=== PATIENT | female | born 1950 | race Caucasian/White ===

== ENCOUNTER 2016-09-21 16:51 | Observation (INO) | payer MEDICARE, OTHER ==
[2016-09-21] MEDS ORDERED: TYLENOL 325 MG PO PRN (18:59)
[2016-09-21] MEDS ORDERED: Zofran 4 MG/2 ML VIAL IV PRN (18:59)
[2016-09-21] MEDS ORDERED: Colace 100 MG PO PRN (18:59)
[2016-09-21] MEDS ORDERED: Sodium Chloride 0.9% 1000 ML 1,000 ML IV STA (18:59)
[2016-09-21] MEDS ORDERED: ROCEPHIN 1 Gm-D5w 50 ml Bag** 1 G/50 ML IVPB IV SCH (19:00)
[2016-09-21 19:50] LABS: BASOPHIL % 0.5 % (0.0-0.4); Eosinophil % 2.7 % (0.00-5.0); Granulocytes % 48.8 % (36.0-66.0); Lymphocytes % 36.3 % (24.0-44.0); Mean Cell Volume 89.5 fl (78-100); Mean Platelet Volume 10.1 fl (6-9.5); Monocytes % 11.7 % (0.0-12.0); Platelet Count 398 K/mm3 (150-450); Red Blood Count 4.37 M/mm3 (4.1-5.4); White Blood Count 6.3 K/mm3 (4.0-10.5)
[2016-09-21 20:53] LABS: ALBUMIN 3.8 g/dL (3.4-5.0); ALKALINE PHOSPHATASE 47 U/L (46-116); ANION GAP 12.7 MEQ/L (5-15); BILIRUBIN,TOTAL 0.2 mg/dL (0.2-1.0); BLOOD UREA NITROGEN 13 mg/dL (9-20); CHLORIDE 103 mEq/L (98-107); Carbon Dioxide 26.6 mEq/L (21-32); Glucose 92 MG/DL (70-110); Potassium 3.5 mEq/L (3.5-5.1); SGOT/AST 8 U/L (15-37); SGPT/ALT 16 U/L (12-78); SODIUM 139 mEq/L (136-145); Total Protein 7.4 gm/dL (6.4-8.2)
[2016-09-21 21:07] LABS: COMPLETE URINE MICROSCOPIC? YES; Collection Type CLEAN CATCH; Mucus SLIGHT /HPF (NEGATIVE); WBC 15-25 /HPF (0-5)
[2016-09-21 21:08] LABS: Bacteria FEW /HPF (NEGATIVE); Epithelial Cells MODERATE /HPF (FEW)
[2016-09-21] MEDS ORDERED: NORCO 5/325 MG PO PRN (21:14)
[2016-09-21] MEDS ORDERED: Protonix 20MG Tablet PO SCH (21:15)
[2016-09-21] MEDS ORDERED: BACTRIM DS TABLET PO PRN (21:16)
[2016-09-21] MEDS: Sodium Chloride 0.9% 1000 ML 1,000 ML IV SCH (21:48)
[2016-09-22] MEDS: Sodium Chloride 0.9% 1000 ML 1,000 ML IV SCH (07:51)
[2016-09-22] MEDS ORDERED: CAFFEINE PO PRN (08:09)
[2016-09-22] MEDS ORDERED: ASPIRIN PO PRN (08:09)
[2016-09-22] MEDS ORDERED: NORCO 5/325 MG PO PRN (08:09)
[2016-09-22] MEDS ORDERED: ACETAMINOPHEN PO PRN (08:09)
[2016-09-22 08:13] VITALS: BP 140/66
[2016-09-22] MEDS ORDERED: TYLENOL EXTRA STRENGTH 500 MG PO PRN (08:16)
[2016-09-22] MEDS ORDERED: Advair Hfa 115/21 Common canister IH SCH (08:30)
[2016-09-22] MEDS ORDERED: MEDICATION INTERVENTION MC PRN (08:33)
[2016-09-22 08:53] VITALS: PULSE 72; O2SAT 97
--- NOTE | 2016-09-22 09:08 | XRAY ---
Indication: Fever. Comparison: June 13, 2008. PA/lateral chest again hyperinflated with hilar calcified nodes. No focal infiltrate, consolidation, or large effusion. Heart is not enlarged. Bony thorax again demonstrate mild osteopenia with new remote-appearing fracture of what appears to be T7. Also interval L1/L3 kyphoplasty. Impression: Nonacute chest with chronic features. Comment: Preliminary interpretation was made by [facility]. No discrepancy.
[2016-09-22] MEDS ORDERED: NON-FORMULARY ITEM (Oxybutynin Chloride [Oxybutynin Chloride Er] 10 MG) PO SCH (10:00)
[2016-09-22] MEDS ORDERED: Ditropan XL 5 MG PO SCH (10:00)
[2016-09-22] MEDS ORDERED: Spiriva 18 Mcg/Cap Inhaler IH SCH (10:00)
[2016-09-22] MEDS ORDERED: NON-FORMULARY ITEM (Calcium [Calcium] 500 MG) PO SCH (10:00)
[2016-09-22] MEDS ORDERED: MV MIN PO SCH (10:00)
[2016-09-22] MEDS ORDERED: Calcium 500MG W/Vit D Tablet PO SCH (10:00)
[2016-09-22] MEDS ORDERED: Cozaar 50 MG PO SCH (10:00)
[2016-09-22] MEDS ORDERED: THERAGRAN MULTIVITAMIN PO SCH (10:00)
[2016-09-22] MEDS ORDERED: ENOXAPARIN SODIUM SQ SCH (10:00)
[2016-09-22] MEDS ORDERED: Singulair 10 MG PO SCH (10:00)
[2016-09-22] MEDS ORDERED: FISH OIL 1,000 MG CAPSULE PO SCH (10:00)
[2016-09-22] MEDS ORDERED: AZELASTINE HCL OP SCH (10:00)
[2016-09-22] MEDS ORDERED: Tricor 145 MG PO SCH (10:00)
[2016-09-22] MEDS ORDERED: NON-FORMULARY ITEM (Omega-3 Fatty Acids [Fish Oil] 300 MG) PO SCH (10:00)
[2016-09-22] MEDS ORDERED: [UNRECOGNIZED DRUG - OTHER] PO SCH (10:00)
[2016-09-22] MEDS ORDERED: NON-FORMULARY ITEM (Losartan Potassium [Losartan Potassium] 25 MG) PO SCH (10:00)
[2016-09-22] MEDS ORDERED: Lexapro 10 MG PO SCH (10:00)
[2016-09-22] MEDS ORDERED: VITAMIN D PO SCH (10:00)
[2016-09-22] MEDS ORDERED: NON-FORMULARY ITEM (Budesonide/Formoterol Fumarate [Symbicort 80-4.5 Mcg Inhaler] 2 PUFFS) IH SCH (10:00)
[2016-09-22] MEDS ORDERED: IRON CARBONYL PO SCH (10:00)
== END 2016-09-22 10:10 | disposition home or self-care (01) ==
LOC: MED SURG 16:51
PROVIDERS: ADMIT General Practice; ATTEND General Practice
DX: R10.84 Generalized abdominal pain (principal); N39.0 Urinary tract infection, site not specified; I10 Essential (primary) hypertension; E78.5 Hyperlipidemia, unspecified; M54.9 Dorsalgia, unspecified; G89.29 Other chronic pain; F45.42 Pain disorder with related psychological factors; F41.9 Anxiety disorder, unspecified; Z79.899 Other long term (current) drug therapy
CPT/HCPCS: 36415; 71020; 80053; 81000; 85025; 87040; 87086; 94640; 94760; G0378; J0696; J1650; A9270-GY

== ENCOUNTER 2016-11-19 15:20 | Emergency (ER) | payer MEDICARE, OTHER ==
[2016-11-19] MEDS ORDERED: Sodium Chloride 0.9% 1000 ML 1,000 ML IV STA (16:17)
[2016-11-19] MEDS ORDERED: Sodium Chloride 0.9% 1000 ML 1,000 ML ONE (16:20)
[2016-11-19] MEDS ORDERED: MORPHINE SULFATE 4 MG INJ IV ONE (16:34)
[2016-11-19] MEDS ORDERED: Phenergan 25 MG INJ IV ONE (16:34)
[2016-11-19 16:36] LABS: BASOPHIL % 0.4 % (0.0-0.4); Eosinophil % 1.3 % (0.00-5.0); Granulocytes % 65.2 % (36.0-66.0); Lymphocytes % 22.8 % (24.0-44.0); Mean Cell Volume 87.9 fl (78-100); Mean Corpuscular Hemoglobin 30.2 pg (26-32); Mean Platelet Volume 9.8 fl (6-9.5); Monocytes % 10.3 % (0.0-12.0); Platelet Count 462 K/mm3 (150-450); Red Blood Count 4.94 M/mm3 (4.1-5.4); Red Cell Distribution Width 14.1 % (11.5-14.0); White Blood Count 10.5 K/mm3 (4.0-10.5)
[2016-11-19 16:37] LABS: Collection Type VOID
[2016-11-19 16:38] LABS: Bilirubin NEGATIVE (NEGATIVE); Blood MODERATE Ery/ul (0-5); COMPLETE URINE MICROSCOPIC? YES; Glucose NEGATIVE (NEGATIVE); Leukocyte Esterase LARGE (NEGATIVE)
--- NOTE | 2016-11-19 16:42 | ERPHSYRPT ---
- History of Present Illness Time Seen by Provider: 11/19/16 16:23 Historian: patient Exam Limitations: no limitations Patient Subjective Stated Complaint: pt c/o abd pain in the center and nausea since tuesday. Triage Nursing Assessment: pt is alert x 3. ambulated into the ER. Respirations even and unlabored. skin is pink warm and dry. Physician History: This is a 66-year-old white female with history of asthma diverticulosis hernia repair partial gastrectomy polyps arthritis sarcoidosis osteoporosis cholecystectomy Patient states that she has chronic problems with ventral hernias she states she is scheduled for surgery in 2 months she states that she has been vomiting for approximately 2 weeks but since last Tuesday 3 days ago she began to have persistent vomiting she is having some periumbilical pain. She has no fevers no melena no hematochezia. Past medical history includes asthma, diverticulitis, hernia, polyps, arthritis , sarcoidosis, osteoporosis, past surgical history includes bowel surgery, cholecystectomy, hysterectomy, hernia repair, esophageal dilatation, and kidney stones Timing/Duration: week(s) (symptoms for 2 weeks worse for the past 3 days) Activities at Onset: none Quality: cramping Abdominal Pain Onset Location: periumbilical Pain Radiation: no radiation Severity of Pain-Max: moderate Severity of Pain-Current: moderate Associated Symptoms: nausea, vomiting, No back, No chest pain, No diaphoresis, No diarrhea, No fever/chills, No fatigue, No headache, No heartburn, No loss of appetite, No neck pain, No rash, No shortness of breath, No syncope, No weakness Previous symptoms: same symptoms as today Allergies/Adverse Reactions: No Known Drug Allergies Allergy (Unverified 09/21/16 17:00) Home Medications: Budesonide/Formoterol Fumarate [Symbicort 80-4.5 Mcg Inhaler] 2 puffs IH DAILY 09/21/16 [History] Cholecalciferol (Vitamin D3) [Vitamin D] 1,000 units PO BID 09/21/16 [ History] Escitalopram Oxalate 10 mg [Lexapro 10 MG] 20 mg PO DAILY 09/21/16 [History] Fenofibrate Nanocrystallized [Fenofibrate] 145 mg PO DAILY 09/21/16 [History] Hydrocodone Bit/Acetaminophen [[place] 5-325 Tablet] 1 each PO TID 09/21/16 [ History] Losartan Potassium 25 mg PO DAILY 09/21/16 [History] Montelukast Sodium [Singulair] 10 mg PO DAILY 09/21/16 [History] Mv, Min #36/Iron,Carbonyl/FA [Geritol Complete Tablet] 1 each PO DAILY 09/21/16 [History] Oxybutynin Chloride [Oxybutynin Chloride ER] 10 mg PO DAILY 09/21/16 [History] PANTOPRAZOLE 40 mg Tablet [Protonix 40MG Tablet] 40 mg PO TID PRN [History] Tiotropium [place] [Spiriva] 18 mcg IH DAILY 09/21/16 [History] [place]-3 Fatty Acids/Fish Oil [Fish Oil 1,000 mg Capsule] 1,000 mg PO DAILY 10/01/16 [History] Polyethylene Glycol 3350 17 gm [Miralax Powder 17GM PACKET] 17 gm PO DAILY [History] Hx Tetanus, Diphtheria Vaccination/Date Given: Yes (2015) Hx Influenza Vaccination/Date Given: Yes Hx Pneumococcal Vaccination/Date Given: Yes Immunizations Up to Date: Yes - Review of Systems Constitutional: No Fever, No Chills Eyes: No Symptoms Ears, Nose, & Throat: No Symptoms Respiratory: No Cough, No Dyspnea Cardiac: No Chest Pain, No Edema, No Syncope Abdominal/Gastrointestinal: Abdominal Pain, Nausea, Vomiting, No Diarrhea, No Constipation, No Hematemesis, No Hematochezia, No Melena, No Dysphagia, No Appetite Changes Genitourinary Symptoms: No Dysuria Musculoskeletal: No Back Pain, No Neck Pain Skin: No Rash Neurological: No Dizziness, No Focal Weakness, No Sensory Changes Psychological: No Symptoms Endocrine: No Symptoms All Other Systems: Reviewed and Negative - Past Medical History Pertinent Past Medical History: Yes Neurological History: No Pertinent History ENT History: No Pertinent History Cardiac History: No Pertinent History Respiratory History: Asthma Endocrine Medical History: No Pertinent History Musculoskeletal History: Arthritis, Other GI Medical History: Diverticulitis, Hernia, Polyps History: No Pertinent History Psycho-Social History: No Pertinent History Female Reproductive Disorders: No Pertinent History Other Medical History: sarcoidosis, osteoporosis, - Past Surgical History Past Surgical History: Yes Neuro Surgical History: No Pertinent History Gastrointestinal: Bowel Surgery, Cholecystectomy, Hernia Repair Female Surgical History: Hysterectomy, Tubal Ligation Other Surgical History: esophageal reduction, kyphoplasty - Social History Smoking Status: Never smoker Exposure to second hand smoke: Yes Drug Use: none Patient Lives Alone: Yes - Nursing Vital Signs Nursing Vital Signs: Initial Vital Signs Temperature 97.8 F Temperature Source Oral Pulse Rate 70 Respiratory Rate 20 Blood Pressure [] 143/75 Pain Intensity 0 - Physical Exam General Appearance: no apparent distress, alert Eye Exam: PERRL/EOMI, eyes nml inspection Ears, Nose, Throat Exam: normal ENT inspection, pharynx normal, moist mucous membranes Neck Exam: normal inspection, non-tender, supple, full range of motion Respiratory Exam: normal breath sounds, lungs clear, No respiratory distress Cardiovascular Exam: regular rate/rhythm, normal heart sounds Gastrointestinal/Abdomen Exam: soft, normal bowel sounds, tenderness ( Periumbilical tenderness), other (ventral hernias noted no entrapment noted) Back Exam: normal inspection, normal range of motion, No CVA tenderness, No vertebral tenderness Extremity Exam: normal inspection, normal range of motion, pelvis stable Neurologic Exam: alert, oriented x 3, cooperative, normal mood/affect, nml cerebellar function, sensation nml, No motor deficits Skin Exam: normal color, warm, dry SpO2 Interpretation: normal (97%) SpO2: 97 Oxygen Delivery: Room Air - Course Nursing assessment & vital signs reviewed: Yes EKG Interpreted by Me: RATE (67 bpm), Sinus Rhythm, NORMAL AXIS, Other (EKG: Sinus rhythm 67 bpm, normal axis, no acute ST or T wave changes noted) - Radiology Exams Abdomen X-ray Interpretation: Discussed w/ radiologist (three-view abdomen: Impression 1 abnormal bowel gas pattern which co distal small bowel obstruction further evaluation with a CT of abdomen and pelvis preferably with IV contrast may 2. No free intraperitoneal air is seen . No acute cardiopulmonary process is seen. 4. Status post kyphoplasty at L1 and L3 and slight thoracolumbar S- shaped scoliosis) - CT Exams Abdomen/Pelvis CT Interpretation: Discussed w/radiologist (CT abdomen and pelvis compared to June 13, 2008 small hiatal hernia possibly sliding type, ventral hernia with new knuckle of herniating producing partial obstruction. The second ventral umbilical hernia with small bowel herniating also producing partial obstruction. New nonobstructing left renal micro-ca, bladder micro-calculi and 1.6 cm left renal cyst) Ordered Tests: Active Orders 24 hr Category Date Time Status EKG-ER Only STAT Care 11/19/16 19:02 Active IV Insertion STAT Care 11/19/16 16:17 Active ABDOMEN AND PELVIS W CONTRAST [CT] Stat Exams 11/19/16 17:51 Taken OBSTR/ACUTE ABDOMEN SERIES Stat Exams 11/19/16 16:35 Completed AMYLASE Stat Lab 11/19/16 16:30 Completed CBC W DIFF Stat Lab 11/19/16 16:30 Completed CMP Stat Lab 11/19/16 16:30 Completed CULTURE,URINE Stat Lab 11/19/16 16:25 Received LIPASE Stat Lab 11/19/16 16:30 Completed UA W/ MICROSCOPIC Stat Lab 11/19/16 16:25 Completed Medication Summary Generic Name Dose Route Start Last Admin Trade Name Freq PRN Reason Stop Dose Admin Potassium Chloride 100 mls @ 50 mls/hr 11/19/16 19:20 11/19/16 19:36 Potassium Chloride 20 Meq In Water 100ml IV 11/19/16 21:19 50 mls/hr STAT ONE Administration Potassium Chloride/Sodium Chloride 1,000 mls @ 100 mls/hr 11/19/16 19:30 19:41 Sodium Chloride 0.9% W/ 20 Meq Kcl/Liter IV 12/19/16 19:29 100 mls/hr .Q10H MICHAEL Administration Discontinued Medications Generic Name Dose Route Start Last Admin Trade Name Freq PRN Reason Stop Dose Admin Sodium Chloride 1,000 mls @ 999 mls/hr 11/19/16 16:17 11/19/16 16:32 Sodium Chloride 0.9% 1000 Ml IV 11/19/16 17:17 999 mls/hr .Q1H1M STA Administration Sodium Chloride Confirm 11/19/16 16:20 Sodium Chloride 0.9% 1000 Ml Administered 11/19/16 16:21 Dose 1,000 mls @ ud .ROUTE .STK-MED ONE Ceftriaxone Sodium/Dextrose 1 g in 50 mls @ 100 mls/hr 11/19/16 17:51 17:52 Rocephin 1 Gm-D5w 50 Ml Bag IV 11/19/16 18:20 100 mls/hr STAT STA Administration Ceftriaxone Sodium/Dextrose Confirm 11/19/16 17:51 Rocephin 1 Gm-D5w 50 Ml Bag Administered 11/19/16 17:52 Dose 1 g in 50 mls @ ud IV .STK-MED ONE Potassium Chloride Confirm 11/19/16 19:35 Potassium Chloride 20 Meq In Water 100ml Administered 11/19/16 19:36 Dose 100 mls @ ud IV .STK-MED ONE Morphine Sulfate 4 mg 11/19/16 16:34 11/19/16 17:33 Morphine Sulfate 4 Mg Inj IV 11/19/16 16:35 4 mg STAT ONE Administration Morphine Sulfate Confirm 11/19/16 17:30 Morphine Sulfate 4 Mg Inj Administered 11/19/16 17:31 Dose 4 mg .ROUTE .STK-MED ONE Promethazine HCl 12.5 mg 11/19/16 16:34 11/19/16 17:33 Phenergan 25 Mg Inj IV 11/19/16 16:35 12.5 mg STAT ONE Administration Promethazine HCl Confirm 11/19/16 17:30 Phenergan 25 Mg Inj Administered 11/19/16 17:31 Dose 25 mg .ROUTE .STK-MED ONE Lab/Rad Data: Laboratory Result Diagrams 11/19/16 16:30 11/19/16 16:30 Laboratory Results 11/19/16 11/19/16 11/19/16 Range/Units 16:30 16:30 16:25 WBC 10.5 (4.0-10.5) K/mm3 RBC 4.94 (4.1-5.4) M/mm3 Hgb 14.9 (12.0-16.0) gm/dl Hct 43.4 (35-47) % MCV 87.9 (78-100) fl MCH 30.2 (26-32) pg MCHC 34.3 (32-36) g/dl RDW 14.1 H (11.5-14.0) % Plt Count 462 H (150-450) K/mm3 MPV 9.8 H (6-9.5) fl Gran % 65.2 (36.0-66.0) % Lymphocytes % 22.8 L (24.0-44.0) % Monocytes % 10.3 (0.0-12.0) % Eosinophils % 1.3 (0.00-5.0) % Basophils % 0.4 (0.0-0.4) % Basophils # 0.04 (0-0.4) Sodium 139 (136-145) mEq/L Potassium 2.9 L* (3.5-5.1) mEq/L Chloride 99 (98-107) mEq/L Carbon Dioxide 27.3 (21-32) mEq/L Anion Gap 15.5 H (5-15) MEQ/L BUN 22 H (9-20) mg/dL Creatinine 0.81 (0.55-1.30) mg/dl Estimated GFR > 60 ML/MIN Glucose 104 (70-110) MG/DL Calcium 10.2 H (8.5-10.1) mg/dL Total Bilirubin 0.50 (0.2-1.0) mg/dL AST 27 (15-37) U/L ALT 25 (12-78) U/L Alkaline Phosphatase 57 (46-116) U/L Serum Total Protein 8.1 (6.4-8.2) gm/dL Albumin 3.9 (3.4-5.0) g/dL Amylase 34 (25-115) U/L Lipase 117 (73-393) U/L Ur Collection Type VOID Urine Color YELLOW (YELLOW) Urine Appearance CLOUDY (CLEAR) Urine pH 7.0 (5-6) Ur Specific [place] 1.015 (1.005-1.025) Urine Protein TRACE (Negative) Urine Ketones NEGATIVE (NEGATIVE) Urine Blood MODERATE (0-5) Baudilio/ul Urine Nitrite NEGATIVE (NEGATIVE) Urine Bilirubin NEGATIVE (NEGATIVE) Urine Urobilinogen NORMAL (0-1) mg/dL Ur Leukocyte Esterase LARGE (NEGATIVE) Urine Microscopic RBC 2-5 (0-2) /HPF Urine Microscopic WBC >100 (0-5) /HPF Ur Epithelial Cells MODERATE (FEW) /HPF Calcium Oxalate Crystal 25-50 (NEGATIVE) /HPF Amorphous Crystals MODERATE (NEGATIVE) /HPF Urine Bacteria MANY (NEGATIVE) /HPF Urine Mucus SLIGHT (NEGATIVE) /HPF Urine Glucose NEGATIVE (NEGATIVE) mg/dL Specimen Received 11/19/16 1625 - Progress Progress: improved Progress Note: 11/19/16 16:41 66-year-old white female history of bowel resection in the ventral hernias with repair who states she has had recurrent ventral hernias. She arrives with complaint of pain in the anterior abdomen vomiting symptoms for 2 weeks symptoms worse for the past 3 days. Patient does not appear to be in severe distress at this time however she is complaining of pain in the periumbilical region. I have palpated her abdomen there are positive bowel sounds she does have some hernias has some around the periumbilical region however there does not appear to be any entrapment. She is stating that she is having some abdominal pain she apparently is on [place] but states she does not take it for her abdominal pain that she's not sure she can. Will go ahead and obtain CBC CMP amylase lipase and UA. Will provide IV fluids. Will give patient morphine and Phenergan and obtain acute abdomen series. 11/19/16 17:52 Patient's x-ray read as a radiologist as having abnormal bowel he has patent which could be due to early complete or partial distal small bowel obstruction further CT of the abdomen and pelvis with contrast was recommended. Patient also with greater than 100 white cells per high-power field in her urine. Patient also with a potassium of 2.9. Will go ahead and give patient Rocephin 1 g IV urine cultures have been obtained Will order CT of the abdomen and pelvis. Will talk with Dr. Overton when patient's CT results are available. Anticipate replacement of patient's potassium 11/19/16 19:49 CT of the abdomen and pelvis is remarkable for a hiatal hernia also a super umbilical ventral hernia with a knuckle of small and large bowel herniating causing a partial obstruction which is new there is also umbilical hernia with small bowel herniation also producing partial obstruction I've discussed the patient's case with Dr. Murray who is senior application security consultant for Dr. Overton Had considered admitting the patient here for treatment of her urinary tract infection, administration of IV fluids and potassium however the patient will need a surgery consult as well. The patient has seen in the past and is currently seeing him and we will go ahead and call and consider transfer to [facility]. 11/19/16 20:13 I contacted [facility] one call and contacted Elisabet Palmer who is on-call for the hospitalist at [facility]. I discussed the the patient's case with Elisabet Palmer she has accepted the patient for transfer to [facility] she will discussed the case with Dr. Blevins as well. - Departure Time of Disposition: 20:15 Departure Disposition: Transfer ([facility] Elisabet Palmer for hospitalist service) Clinical Impression: Small bowel obstruction, Hypokalemia Vomiting Qualifiers: Vomiting type: unspecified Vomiting Intractability: non-intractable Nausea presence: with nausea Qualified Code(s): R11.2 - Nausea with vomiting, unspecified Abdominal pain Qualifiers: Abdominal location: periumbilical Qualified Code(s): R10.33 - Periumbilical pain UTI (urinary tract infection) Qualifiers: Urinary tract infection type: site unspecified Hematuria presence: without hematuria Qualified Code(s): N39.0 - Urinary tract infection, site not specified Condition: Fair Critical Care Time: No Referrals: JSOE OVERTON [Primary Care Provider] -
[2016-11-19 16:45] LABS: Bacteria MANY /HPF (NEGATIVE); CALCIUM OXALATE CRYSTALS 25-50 /HPF (NEGATIVE); Epithelial Cells MODERATE /HPF (FEW); Mucus SLIGHT /HPF (NEGATIVE); WBC >100 /HPF (0-5)
[2016-11-19 16:46] LABS: ADD URINE CULTURE? YES (NO)
[2016-11-19 17:05] LABS: ALBUMIN 3.9 g/dL (3.4-5.0); ALKALINE PHOSPHATASE 57 U/L (46-116); ANION GAP 15.5 MEQ/L (5-15); BLOOD UREA NITROGEN 22 mg/dL (9-20); CHLORIDE 99 mEq/L (98-107); Carbon Dioxide 27.3 mEq/L (21-32); Glucose 104 MG/DL (70-110); LIPASE 117 U/L (73-393); SGOT/AST 27 U/L (15-37); SGPT/ALT 25 U/L (12-78); SODIUM 139 mEq/L (136-145); Total Protein 8.1 gm/dL (6.4-8.2)
[2016-11-19 17:12] LABS: Potassium 2.9 mEq/L (3.5-5.1)
--- NOTE | 2016-11-19 17:24 | XRAY ---
Exam: Acute abdominal series from 11/19/2016. Comparison: Two-view chest from 09/21/[address] of the abdomen without IV contrast from 06/13/2008. Indication: Vomiting and abdominal pain. Findings: An upright PA chest film was obtained in addition to 2 supine images of the abdomen and one upright image of the abdomen. The transverse heart size appears within normal limits. Mild tortuosity of the descending thoracic aorta is seen. Subcarinal lymph node calcifications are seen just to the right of midline as well as the right infrahilar projection. Previously noted retrocardiac hiatal hernia is not as well seen on the frontal projection. I believe there is some epicardial fat versus minimal atelectasis near the right cardiophrenic angle. I don't believe this is significantly changed. The lungs are adequately inflated. No air space infiltrates, vascular congestion, pneumothorax, or pleural fluid is seen. Some contour abnormalities are seen within the anterior lateral left lower rib cage suggestive of old healed fractures. This is unchanged. Mild to moderately dilated small bowel is seen across the lower abdomen containing air-fluid levels. Some gas is seen distally within the right hemicolon and splenic flexure. No free intraperitoneal air is seen. No hepatosplenomegaly is seen. No suspicious abdominal calcifications are noted. There is evidence of prior kyphoplasty at L1 and L3. There is slight convexity of the spine toward the right centered at T 11T12 and toward the left centered at L3. Impression: 1. Abnormal bowel gas pattern which could be due to an early complete or partial distal small bowel obstruction. Further evaluation with a CT of the abdomen and pelvis (preferably with IV contrast) may be helpful. 2. No free intraperitoneal air is seen. 3. No acute cardiopulmonary process is seen. 4. Status post kyphoplasty at L1 and L3 and slight lower thoracolumbar S-shaped scoliosis.
[2016-11-19] MEDS ORDERED: MORPHINE SULFATE 4 MG INJ ONE (17:30)
[2016-11-19] MEDS ORDERED: Phenergan 25 MG INJ ONE (17:30)
[2016-11-19] MEDS ORDERED: ROCEPHIN 1 Gm-D5w 50 ml Bag** 1 G/50 ML IVPB IV ONE (17:51)
[2016-11-19] MEDS ORDERED: ROCEPHIN 1 Gm-D5w 50 ml Bag** 1 G/50 ML IVPB IV STA (17:51)
[2016-11-19 18:10] VITALS: O2SAT 97
[2016-11-19 18:55] VITALS: PULSE 70
[2016-11-19] MEDS ORDERED: POTASSIUM CHLORIDE 20 mEq IN WATER 100ML 100 ML IV ONE ×2 (19:20→19:35)
[2016-11-19] MEDS ORDERED: Sodium Chloride 0.9% W/ 20 mEq KCl/LITER 1,000 ML IV SCH (19:30)
[2016-11-19] MEDS ORDERED: Sodium Chloride 0.9% W/ 20 mEq KCl/LITER 1,000 ML IV ONE (19:41)
[2016-11-19 21:06] VITALS: BP 137/78
--- NOTE | 2016-11-19 21:43 | XRAY ---
Indication: Abdominal pain and vomiting. Multiple contiguous axial images obtained through the abdomen and pelvis using 80 cc Isovue 370 contrast only. Comparison: June 17, 2008. Lung bases again demonstrate scattered fibrosis/scarring and right lower lobe calcified granuloma. Sparks right infrahilar calcified nodes. Heart is not enlarged. Previous large hiatal hernia appears smaller possibly sliding type. Previous umbilical ventral hernia defect has slightly enlarged today at least 4 cm in diameter with now a loop of small bowel herniating and mildly fluid distended. The more proximal small bowel loops are mildly fluid distended while the more distal bowel loops are decompressed suggesting partial obstruction. There is also new larger midline epigastric ventral hernia defect at least 6 cm in diameter with knuckle of transverse colon and fluid-filled small bowel herniating. Proximal small bowel loops are mildly distended while the more distal bowel loops are decompressed favoring partial obstruction. New left mid abdomen and distal sigmoid anastomosis appears intact. No free fluid/air. New left lower renal calyx microcalculi, largest 4-5 mm. Urinary bladder also demonstrates new posterior microcalculi versus bladder wall calcifications. New 1.7 cm left mid renal cyst. There has been interval cholecystectomy with mild biliary prominence. New 1.2 cm right lobe hepatic cyst inferiorly. A few hepatic/splenic calcified granulomas. Again previous hysterectomy. Remaining liver, pancreas, spleen, adrenal glands, kidneys, and ureters appear unremarkable. Again minimal scattered aortoiliac calcifications. No AAA or pathologic retroperitoneal lymphadenopathy. Osseous structures intact with new remote-appearing L1-L3 and L5 compression fractures. There has been L1/L3 vertebroplasty. Impression: 1. Enlarging umbilical ventral hernia and a new second midline epigastric ventral hernia both with herniated bowel loops producing partial obstruction. 2. New left renal cyst and microcalculi. Urinary bladder also demonstrates new posterior microcalculi versus bladder wall calcifications. Direct cystoscopy may yield further information. 3. New hepatic cyst. 4. Smaller hiatal hernia possibly sliding type. 5. New remote-appearing multilevel lumbar compression fractures and L1/L3 vertebroplasty. 6. Again evidence for old granulomatous disease. CTDI 26.36
== END 2016-11-19 21:15 | disposition short-term general hospital (02) ==
LOC: ED 15:20
DX: R11.2 Nausea with vomiting, unspecified (principal); R10.33 Periumbilical pain; N39.0 Urinary tract infection, site not specified; K56.69 Other intestinal obstruction; E87.6 Hypokalemia; R10.9 Unspecified abdominal pain; Z79.899 Other long term (current) drug therapy
CPT/HCPCS: 36000; 36415; 74022; 74177; 80053; 81000; 82150; 83690; 85025; 87086; 93005; 93041; 96360; 96361; 96365; 96374; 96375; 99285; J0696; J2270; J2550; J3480

== ENCOUNTER 2017-09-13 17:11 | Emergency (ER) | payer MEDICARE, OTHER ==
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
[2017-09-13] MEDS ORDERED: TORAdol 30 mg Injection ONE (18:04)
[2017-09-13] MEDS: TORAdol 30 mg Injection IV ONE (18:05)
[2017-09-13] MEDS: TORAdol 30 mg Injection IM ONE (18:13)
[2017-09-13 20:19] LABS: Appearance CLOUDY (CLEAR); Bilirubin NEGATIVE (NEGATIVE); Blood 250 Ery/ul (0-5); Glucose NEGATIVE (NEGATIVE); Ketones NEGATIVE (NEGATIVE); Leukocyte Esterase 2+ (NEGATIVE); Nitrite NEGATIVE (NEGATIVE); Ph 6.5 (5-6); Protein,Urine Dip NEGATIVE (Negative); Urobilinogen NORMAL mg/dL (0-1)
[2017-09-13 20:21] LABS: Amourphous Crystal MODERATE /HPF (NEGATIVE); Bacteria FEW /HPF (NEGATIVE); Epithelial Cells FEW /HPF (FEW)
[2017-09-13 20:39] VITALS: BP 127/61; PULSE 68; O2SAT 99
--- NOTE | 2017-09-14 08:42 | XRAY ---
Indication: Abdominal/rib pain following fall. Comparison: None KUB nonacute and nonobstructed with cholecystectomy clips, left renal micro-calculi, calcified splenic granulomas, and right abdomen/pelvic suture material. Osseous structures intact with osteopenia, remote multilevel lumbar compression fractures, and L1/L3 kyphoplasty. Impression: Nonacute KUB with chronic features.
--- NOTE | 2017-09-14 08:44 | XRAY ---
Indication: Pain following fall. Comparison: None 2 views of the left ribs demonstrates osteopenia, multilevel degenerative spondylosis, multiple old left rib fractures, remote T7 compression fracture, L-1/L3 kyphoplasty, mediastinal/hilar calcified granulomas, calcified splenic granulomas, and left renal micro-calculi. No other bony, articular, or soft tissue abnormalities.
--- NOTE | 2017-09-14 08:47 | XRAY ---
Indication: Pain following fall. Comparison: None 2 views of the right ribs demonstrates osteopenia, multilevel degenerative spondylosis, remote T7 compression fracture, L1/L3 kyphoplasty, and mediastinal/hilar calcified granulomas. No other bony, articular, or soft tissue abnormalities.
== END 2017-09-13 20:40 | disposition home or self-care (01) ==
LOC: ED 17:11
DX: R10.9 Unspecified abdominal pain (principal); R07.9 Chest pain, unspecified; R51 Headache; R07.81 Pleurodynia; N39.0 Urinary tract infection, site not specified; W17.89XA Other fall from one level to another, initial encounter; Z79.899 Other long term (current) drug therapy
CPT/HCPCS: 36000; 71100; 74018; 81000; 87086; 96374; 99283; 99284; J1885

== ENCOUNTER 2019-07-11 01:40 | Emergency (ER) | payer MEDICARE, OTHER ==
[2019-07-11] MEDS ORDERED: SUBLIMAZE 100 MCG/2 ML IV ONE (01:50)
[2019-07-11] MEDS ORDERED: SUBLIMAZE 100 MCG/2 ML ONE (01:57)
--- NOTE | 2019-07-11 01:57 | ERPHSYRPT ---
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 There is redness but no vesicles or blisters. She complains of pain. This occurred just prior to arrival. And is presently treated with [place] fives twice a day we will give her a prescription for 10 additional tablets to handle the pain of these nichols. Timing/Duration: sudden Quality: burning Severity: severe Location: extremities (Both lower legs) Possible Causes: foods (Broth) Associated Symptoms: No blisters Allergies/Adverse Reactions: No Known Drug Allergies Allergy (Verified 08/22/18 11:31) Home Medications: Budesonide/Formoterol Fumarate [Symbicort 80-4.5 Mcg Inhaler] 2 puffs IH DAILY 09/21/16 [History] Cholecalciferol (Vitamin D3) [Vitamin D] 1,000 units PO BID 09/21/16 [ History] Escitalopram Oxalate 10 mg [Lexapro 10 MG] 20 mg PO DAILY 09/21/16 [History] Fenofibrate Nanocrystallized [Fenofibrate] 145 mg PO DAILY 09/21/16 [History] Hydrocodone Bit/Acetaminophen [[place] 5-325 Tablet] 1 each PO Q6-8HPRN PRN [History] Losartan Potassium 25 mg PO DAILY 09/21/16 [History] Montelukast Sodium [Singulair] 10 mg PO DAILY 09/21/16 [History] Multivit-Min36/Iron/Folic Acid [Geritol Complete Tablet] 1 each PO DAILY [History] PANTOPRAZOLE 40 mg Tablet [Protonix 40MG Tablet] 40 mg PO DAILY PRN PRN [History] Tiotropium [place] [Spiriva] 18 mcg IH DAILY 09/21/16 [History] Hx Tetanus, Diphtheria Vaccination/Date Given: Yes Hx Influenza Vaccination/Date Given: Yes Hx Pneumococcal Vaccination/Date Given: Yes - Review of Systems Constitutional: No Fever, No Chills Eyes: No Symptoms Ears, Nose, & Throat: No Symptoms Respiratory: No Cough, No Dyspnea Cardiac: No Chest Pain, No Edema, No Syncope Abdominal/Gastrointestinal: No Abdominal Pain, No Nausea, No Vomiting, No Diarrhea Genitourinary Symptoms: No Dysuria Musculoskeletal: No Back Pain, No Neck Pain Skin: Other (First degree or partial-thickness ncihols to anterior both legs.), No Rash Neurological: No Dizziness, No Focal Weakness, No Sensory Changes Psychological: No Symptoms Endocrine: No Symptoms All Other Systems: Reviewed and Negative - Past Medical History Pertinent Past Medical History: Yes Neurological History: No Pertinent History ENT History: No Pertinent History Cardiac History: No Pertinent History Respiratory History: Asthma Endocrine Medical History: No Pertinent History Musculoskeletal History: Arthritis, Osteoporosis, Other GI Medical History: Diverticulitis, Hernia, Polyps History: No Pertinent History Psycho-Social History: No Pertinent History Female Reproductive Disorders: No Pertinent History Other Medical History: sarcoidosis, osteoporosis, - Past Surgical History Past Surgical History: Yes Neuro Surgical History: No Pertinent History Cardiac: No Pertinent History Respiratory: No Pertinent History Gastrointestinal: Bowel Surgery, Cholecystectomy, Hernia Repair Female Surgical History: Hysterectomy, Tubal Ligation Other Surgical History: esophageal reduction, kyphoplasty - Social History Smoking Status: Never smoker Exposure to second hand smoke: Yes Drug Use: none Patient Lives Alone: No - Physical Exam General Appearance: no apparent distress, alert Eye Exam: PERRL/EOMI, eyes nml inspection Ears, Nose, Throat Exam: normal ENT inspection, pharynx normal, moist mucous membranes Neck Exam: normal inspection, non-tender, supple, full range of motion Respiratory Exam: normal breath sounds, lungs clear, No respiratory distress Cardiovascular Exam: regular rate/rhythm, normal heart sounds Gastrointestinal/Abdomen Exam: soft, mass, No tenderness Back Exam: normal inspection, normal range of motion, No CVA tenderness, No vertebral tenderness Extremity Exam: normal inspection, normal range of motion Neurologic Exam: alert, oriented x 3, cooperative, normal mood/affect, sensation nml, No motor deficits Skin Exam: other (There is first-degree or partial-thickness nichols to scattered areas on the front of both lower legs) SpO2 Interpretation: normal O2 Delivery: Room Air - Course Nursing assessment & vital signs reviewed: Yes Ordered Tests: Medication Summary Generic Name Dose Route Start Last Admin Trade Name Freq PRN Reason Stop Dose Admin Fentanyl Citrate 75 mcg 07/11/19 01:50 Sublimaze 100 Mcg/2 Ml IV 07/11/19 01:51 STAT ONE - Progress Progress: improved Progress Note: 07/11/19 02:05 Patient is on chronic [place] 5 twice daily we will give 10 extra tablets as needed for pain from the nichols. - Departure Departure Disposition: Home Clinical Impression: First degree burn of right leg, First degree burn of left leg Condition: Stable Critical Care Time: No Referrals: JOSE OVERTON [Primary Care Provider] - Instructions: Skin Nichols Prescriptions: Hydrocodone/APAP 5-325 Tab^^^ [[place] 5-325 Tablet^^^] 1 tab PO Q6HPRN PRN #10 tablet MDD 6 PRN Reason: Pain
[2019-07-11] MEDS ORDERED: BACIGUENT PACKET TP ONE (02:06)
[2019-07-11] MEDS ORDERED: BACIGUENT PACKET ONE (02:11)
[2019-07-11] MEDS ORDERED: TORAdol 30 mg Injection IM ONE (02:52)
[2019-07-11 02:53] VITALS: BP 130/96; PULSE 89
[2019-07-11] MEDS ORDERED: TORAdol 30 mg Injection ONE (02:53)
[2019-07-11] MEDS ORDERED: ZOFRAN ODT 4 MG ONE (02:55)
[2019-07-11] MEDS ORDERED: ZOFRAN ODT 4 MG PO ONE (02:56)
[2019-07-11 03:31] VITALS: O2SAT 98
== END 2019-07-11 03:20 | disposition home or self-care (01) ==
LOC: ED 01:40
DX: T24.102A Burn of first degree of unspecified site of left lower limb, except ankle and foot, initial encounter (principal); T24.101A Burn of first degree of unspecified site of right lower limb, except ankle and foot, initial encounter; X12.XXXA Contact with other hot fluids, initial encounter; Y93.G3 Activity, cooking and baking; Y92.29 Other specified public building as the place of occurrence of the external cause
CPT/HCPCS: 96372; 96374; 99284; J1885; J3010; Q0162; A9270-GY

== ENCOUNTER 2021-02-23 17:56 | Emergency (ER) | payer MEDICARE, OTHER ==
--- NOTE | 2021-02-23 20:27 | ERPHSYRPT ---
- History of Present Illness Time Seen by Provider: 02/23/21 18:20 Source: patient Exam Limitations: no limitations Patient Subjective Stated Complaint: Pt states "I have had horrible diarrhea since last night, my body hurts and I do not feel well" Triage Nursing Assessment: Pt presented alert and oriented X 3, skin wpd Pt ambulates with a slow shuffling gait. Pt in no apparent respiratory distress. Physician History: Patient is a 70-year-old female presents to our ED for evaluation of diarrhea x1 day. Patient states she is also experiencing myalgias. No other complaints. No chest pain or shortness of breath. No nausea or vomiting. Diarrhea is nonbloody nonbilious. No rash. Symptoms are mild to moderate in intensity. No specific worsening improving factors. Patient has no urinary complaints. Patient voices no other complaints or concerns at this time. Timing/Duration: yesterday Severity: moderate Modifying Factors: Improves With: nothing Associated Symptoms: denies symptoms, No abdominal pain, No shortness of breath, No rash Allergies/Adverse Reactions: No Known Drug Allergies Allergy (Verified 02/10/21 15:28) Home Medications: Budesonide/Formoterol Fumarate [Symbicort 80-4.5 Mcg Inhaler] 2 puffs IH DAILY 09/21/16 [History] Cholecalciferol (Vitamin D3) [Vitamin D] 1,000 units PO BID 09/21/16 [History] Escitalopram Oxalate 10 mg [Lexapro 10 MG] 20 mg PO DAILY 09/21/16 [History] Fenofibrate Nanocrystallized [Fenofibrate] 145 mg PO DAILY 09/21/16 [History] Losartan Potassium 25 mg PO DAILY 09/21/16 [History] Montelukast Sodium [Singulair] 10 mg PO DAILY 09/21/16 [History] Multivit-Min36/Iron/Folic Acid [Geritol Complete Tablet] 1 each PO DAILY 09/21/16 [History] PANTOPRAZOLE 40 mg Tablet [Protonix 40MG Tablet] 40 mg PO DAILY PRN PRN 09/21/16 [History] Tiotropium [place] [Spiriva] 18 mcg IH DAILY 09/21/16 [History] Calcium Phosphate Trib/Vit D3 [Calcium Adult Gummies] 1 each PO DAILY 09/14/21 [History] Hx Tetanus, Diphtheria Vaccination/Date Given: Yes Hx Influenza Vaccination/Date Given: Yes Hx Pneumococcal Vaccination/Date Given: Yes Immunizations Up to Date: Yes Travel Risk - International Travel Have you traveled outside of the country in past 3 weeks: No - Coronavirus Screening Are you exhibiting any of the following symptoms?: No Close contact with a COVID-19 positive Pt in past 14-21 Days: No - Vaccine Status Have you recieved a Covid-19 vaccination: Yes 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: [employer] - Vaccination Dates Date of 2cond Vaccination (if applicable): 09/08/2020 - Review of Systems Constitutional: No Symptoms, No Fever, No Chills Eyes: No Symptoms Ears, Nose, & Throat: No Symptoms Respiratory: No Symptoms, No Cough, No Dyspnea Cardiac: No Symptoms, No Chest Pain, No Edema, No Syncope Abdominal/Gastrointestinal: No Symptoms, No Abdominal Pain, No Nausea, No Vomiting, No Diarrhea Genitourinary Symptoms: No Symptoms, No Dysuria Musculoskeletal: No Symptoms, No Back Pain, No Neck Pain Skin: No Symptoms, No Rash Neurological: No Symptoms, No Dizziness, No Focal Weakness, No Sensory Changes Psychological: No Symptoms Endocrine: No Symptoms Hematologic/Lymphatic: No Symptoms Immunological/Allergic: No Symptoms All Other Systems: Reviewed and Negative - Past Medical History Pertinent Past Medical History: Yes Neurological History: No Pertinent History ENT History: No Pertinent History Cardiac History: High Cholesterol, Hypertension Respiratory History: Asthma Endocrine Medical History: No Pertinent History Musculoskeletal History: Arthritis, Osteoporosis, Other GI Medical History: Diverticulitis, Hernia, Polyps History: No Pertinent History Psycho-Social History: No Pertinent History Female Reproductive Disorders: No Pertinent History Other Medical History: sarcoidosis, osteoporosis, - Past Surgical History Past Surgical History: Yes Neuro Surgical History: No Pertinent History Cardiac: No Pertinent History Respiratory: No Pertinent History Gastrointestinal: Bowel Surgery, Cholecystectomy, Hernia Repair Genitourinary: No Pertinent History Musculoskeletal: Other Female Surgical History: Hysterectomy, Tubal Ligation Other Surgical History: esophageal reduction, kyphoplasty - Social History Smoking Status: Never smoker Exposure to second hand smoke: Yes Drug Use: none Patient Lives Alone: No - Nursing Vital Signs Nursing Vital Signs: Initial Vital Signs Temperature 98.2 F 02/23/21 18:18 Pulse Rate 104 H 02/23/21 18:18 Respiratory Rate 20 02/23/21 18:18 Blood Pressure 134/58 02/23/21 18:18 O2 Sat by Pulse Oximetry 95 02/23/21 18:18 Pain Scale Pain Intensity 0 - Physical Exam General Appearance: no apparent distress, alert Eye Exam: PERRL/EOMI, eyes nml inspection Ears, Nose, Throat Exam: normal ENT inspection, TMs normal, pharynx normal, moist mucous membranes Neck Exam: normal inspection, non-tender, supple, full range of motion Respiratory Exam: normal breath sounds, lungs clear, airway intact, No respiratory distress Cardiovascular Exam: regular rate/rhythm, normal heart sounds, normal peripheral pulses Gastrointestinal/Abdomen Exam: soft, normal bowel sounds, No tenderness, No mass Back Exam: normal inspection, normal range of motion, No CVA tenderness, No vertebral tenderness Extremity Exam: normal inspection, normal range of motion, pelvis stable Neurologic Exam: alert, oriented x 3, cooperative, normal mood/affect, sensation nml, No motor deficits Skin Exam: normal color, warm, dry, No rash Lymphatic Exam: No adenopathy SpO2 Interpretation: normal SpO2: 95 O2 Delivery: Room Air - Course Nursing assessment & vital signs reviewed: Yes Ordered Tests: Active Orders 24 hr Category Date Time Status CBC W DIFF Stat Lab 02/23/21 20:40 Completed CMP Stat Lab 02/23/21 20:40 Completed CULTURE,URINE Stat Lab 02/23/21 20:28 Ordered TROPONIN Q3H Lab 02/23/21 20:40 Received TROPONIN Q3H Lab 02/23/21 23:30 Ordered TROPONIN Q3H Lab 02/24/21 02:30 Ordered TROPONIN Q3H Lab 02/24/21 05:30 Ordered TROPONIN Q3H Lab 02/24/21 08:30 Ordered UA W/RFX UR CULTURE Stat Lab 02/23/21 20:27 Ordered Medication Summary Discontinued Medications Generic Name Dose Route Start Last Admin Trade Name Freq PRN Reason Stop Dose Admin Sodium Chloride 1,000 mls @ 999 mls/hr 02/23/21 20:33 02/23/21 20:39 Sodium Chloride 0.9% 1000 Ml IV 02/23/21 21:33 999 mls/hr .Q1H1M STA Administration Sodium Chloride Confirm 02/23/21 20:38 Sodium Chloride 0.9% 1000 Ml Administered 02/23/21 20:39 Dose 1,000 mls @ ud .ROUTE .STK-MED ONE Ketorolac Tromethamine 30 mg 02/23/21 21:32 Toradol 30 Mg Injection IV 02/23/21 21:33 STAT ONE Ketorolac Tromethamine Confirm 02/23/21 21:33 Toradol 30 Mg Injection Administered 02/23/21 21:34 Dose 30 mg .ROUTE .[facility]-MED ONE Lab/Rad Data: Laboratory Result Diagrams 02/23/21 20:40 02/23/21 20:40 Laboratory Results 02/23/21 02/23/21 02/23/21 Range/Units 20:40 20:40 20:40 WBC 11.0 H (4.0-10.5) K/mm3 RBC 4.98 (4.1-5.4) M/mm3 Hgb 14.5 (12.0-16.0) gm/dl Hct 45.9 (35-47) % MCV 92.2 (78-100) fl MCH 29.1 (26-32) pg MCHC 31.6 L (32-36) g/dl RDW 14.5 H (11.5-14.0) % Plt Count 409 (150-450) K/mm3 MPV 10.3 (7.5-11.0) fl Gran % 82.2 H (36.0-66.0) % Eos # (Auto) 0.01 (0-0.5) Absolute Lymphs (auto) 1.01 (1.0-4.6) Absolute Monos (auto) 0.92 (0.0-1.3) Lymphocytes % 9.2 L (24.0-44.0) % Monocytes % 8.4 (0.0-12.0) % Eosinophils % 0.1 (0.00-5.0) % Basophils % 0.1 (0.0-0.4) % Absolute Granulocytes 9.00 H (1.4-6.9) Basophils # 0.01 (0-0.4) Sodium 139 (137-145) mmol/L Potassium 3.6 (3.5-5.1) mmol/L Chloride 101 (98-107) mmol/L Carbon Dioxide 26 (22-30) mmol/L Anion Gap 16.2 H (5-15) MEQ/L BUN 20 H (7-17) mg/dL Creatinine 0.65 (0.52-1.04) mg/dL Estimated GFR > 60.0 ML/MIN Glucose 114 H (74-106) mg/dL Calcium 10.3 H (8.4-10.2) mg/dL Total Bilirubin 0.70 (0.2-1.3) mg/dL AST 36 (14-36) U/L ALT 19 (0-35) U/L Alkaline Phosphatase 63 (38-126) U/L Troponin I < 0.012 (0.000-0.034) ng/mL Serum Total Protein 8.7 H (6.3-8.2) g/dL Albumin 4.9 (3.5-5.0) g/dL - Progress Progress: improved Progress Note: Patient reassessed. She feels better. IV fluids infusing. Patient will rece candice Toradol IV prior to discharge. We will order an outpatient Covid test prior to discharge as well. Patient states he is ready for discharge. Laboratory work-up essentially nonremarkable. Patient voices no other complaints concerns at this time. She agrees to follow-up with her primary care doctor within 48 hours for reevaluation. Portions of this note were created with voice recognition technology. There may be grammatical, spelling, punctuation or sound alike errors 02/23/21 21:33 Counseled pt/family regarding: lab results, diagnosis, need for follow-up - Departure Departure Disposition: Home Clinical Impression: Diarrhea, Myalgia Condition: Stable Critical Care Time: No Referrals: JOSE OVERTON [Primary Care Provider] - Additional Instructions: Discharge/Care Plan DAPHNIE ZAMAN was seen on 02/23/21 in the Emergency Room. The patient was counseled regarding Diagnosis,Lab results, Imaging studies, need for follow up and when to return to the Emergency Room. Prescriptions given: Discharge Note I have spoken with the patient and/or caregivers. I have explained the patient's condition, diagnosis and treatment plan based on the information available to me at this time. I have answered the patient's and/or caregiver's questions and addressed any concerns. The patient and/or caregivers have as good understanding of the patient's diagnosis, condition and treatment plan as can be expected at this point. The vital signs have been stable. The patient's condition is stable and appropriate for discharge from the emergency department. The patient will pursue further outpatient evaluation with the primary care physician or other designated or consulting physician as outlined in the discharge instructions. The patient and/or caregivers are agreeable to this plan of care and follow-up instructions have been explained in detail. The patient and/or caregivers have received these instruction. The patient/and or caregivers are aware that any significant change in condition or worsening of symptoms should prompt an immediate return to this or the closest emergency department or call 911.
[2021-02-23] MEDS ORDERED: Sodium Chloride 0.9% 1000 ML 1,000 ML IV STA (20:33)
[2021-02-23] MEDS ORDERED: Sodium Chloride 0.9% 1000 ML 1,000 ML ONE (20:38)
[2021-02-23 21:04] LABS: BASOPHIL % 0.1 % (0.0-0.4); Basophil (Absolute #) 0.01 (0-0.4); Eosinophil % 0.1 % (0.00-5.0); Eosinophil (Absolute #) 0.01 (0-0.5); Hematocrit 45.9 % (35-47); Hemoglobin 14.5 gm/dl (12.0-16.0); Lymphocyte (Absolute #) 1.01 (1.0-4.6); Lymphocytes % 9.2 % (24.0-44.0); Mean Cell Volume 92.2 fl (78-100); Mean Corpuscular Hemoglobin 29.1 pg (26-32); Mean Corpuscular Hgb Concent. 31.6 g/dl (32-36); Mean Platelet Volume 10.3 fl (7.5-11.0); Monocyte (Absolute #) 0.92 (0.0-1.3); Monocytes % 8.4 % (0.0-12.0); Neutrophil % 82.2 % (36.0-66.0); Platelet Count 409 K/mm3 (150-450); Red Blood Count 4.98 M/mm3 (4.1-5.4); Red Cell Distribution Width 14.5 % (11.5-14.0)
[2021-02-23 21:15] LABS: ALBUMIN 4.9 g/dL (3.5-5.0); ALKALINE PHOSPHATASE 63 U/L (38-126); ANION GAP 16.2 MEQ/L (5-15); BLOOD UREA NITROGEN 20 mg/dL (7-17); CHLORIDE 101 mmol/L (98-107); Calcium 10.3 mg/dL (8.4-10.2); Carbon Dioxide 26 mmol/L (22-30); Creatinine 1 0.65 mg/dL (0.52-1.04); EST GLOMERULAR FILTRATION RATE > 60.0 ML/MIN; Glucose 114 mg/dL (74-106); Potassium 3.6 mmol/L (3.5-5.1); SGOT/AST 36 U/L (14-36); SGPT/ALT 19 U/L (0-35); SODIUM 139 mmol/L (137-145); Total Protein 8.7 g/dL (6.3-8.2)
[2021-02-23] MEDS ORDERED: TORAdol 30 mg Injection IV ONE (21:32)
[2021-02-23] MEDS ORDERED: TORAdol 30 mg Injection ONE (21:33)
[2021-02-23 22:37] LABS: Appearance CLOUDY (CLEAR); Bacteria FEW /HPF (NEGATIVE); Bilirubin NEGATIVE (NEGATIVE); Blood SMALL Ery/ul (0-5); Epithelial Cells RARE /HPF (FEW); Glucose NEGATIVE (NEGATIVE); Ketones TRACE (NEGATIVE); Leukocyte Esterase LARGE (NEGATIVE); Mucus SLIGHT /HPF (NEGATIVE); Nitrite NEGATIVE (NEGATIVE); Protein,Urine Dip 100 (Negative); RBC 26-50 /HPF (0-2); Specific Gravity 1.028 (1.005-1.025); Urobilinogen NEGATIVE mg/dL (0-1); WBC >100 /HPF (0-5)
[2021-02-23] MEDS ORDERED: Macrobid 100MG Capsule PO ONE (22:44)
[2021-02-23] MEDS ORDERED: Macrobid 100MG Capsule ONE (22:45)
[2021-02-23 22:52] VITALS: BP 138/71; PULSE 88; O2SAT 98
== END 2021-02-23 22:52 | disposition home or self-care (01) ==
LOC: ED 17:56
DX: R19.7 Diarrhea, unspecified (principal); M79.18 Myalgia, other site; N39.0 Urinary tract infection, site not specified; E78.00 Pure hypercholesterolemia, unspecified; I10 Essential (primary) hypertension; Z79.899 Other long term (current) drug therapy
CPT/HCPCS: 36415; 80053; 81001; 82550; 84484; 85025; 87086; 96360; 96374; 99284; U0003; J1885; A9270-GY

== ENCOUNTER 2022-05-18 08:37 | Day surgery (SDC) | payer MEDICARE, OTHER ==
[2022-05-18] MEDS ORDERED: Lactated Ringers 1,000 ML IV ONE (09:03)
[2022-05-18] MEDS ORDERED: Transderm Scop 1.5MG Patch TOP PRN (09:15)
[2022-05-18] MEDS ORDERED: Transderm Scop 1.5MG Patch ONE (09:28)
[2022-05-18] MEDS ORDERED: Zofran 4 MG/2 ML VIAL ONE (09:28)
[2022-05-18] MEDS ORDERED: ACETAZOLAMIDE 250 MG TABLET PO ONE (10:00)
[2022-05-18] MEDS ORDERED: Ak-Dilate OPHTHALMIC*** 1.065 ML, Cyclogyl 1% OPHTH SOL 1.065 ML, GATIFLOXACIN 0.5% OPH... OP ONE ×4 (10:00)
[2022-05-18] MEDS ORDERED: cefUROXime sodium 0.005 GM in Sodium Chloride Flush 30 ML*** 0.5 ML IJ ONE (10:00)
[2022-05-18] MEDS ORDERED: Lactated Ringers 1,000 ML IV SCH (10:00)
[2022-05-18] MEDS ORDERED: NON-FORMULARY ITEM OP ONE (10:00)
[2022-05-18] MEDS ORDERED: TETRACAINE 0.5% STERI-UNIT SOL OP ONE ×2 (10:00)
[2022-05-18] MEDS ORDERED: Zofran 4 MG/2 ML VIAL IV PRN (10:00)
[2022-05-18] MEDS ORDERED: BETADINE 5% OPHTHALMIC 30 ML OP ONE (10:00)
[2022-05-18] MEDS ORDERED: Xylocaine-Mpf 2% 5 Ml Vial ONE (10:17)
[2022-05-18] MEDS ORDERED: DIPRIVAN 200 MG/20 ML IV ONE (10:17)
[2022-05-18] MEDS ORDERED: Versed 2 MG/2 ML Injection ONE (10:17)
[2022-05-18] MEDS ORDERED: SUBLIMAZE 100 MCG/2 ML ONE (10:17)
[2022-05-18 10:54] VITALS: BP 127/77; PULSE 72; O2SAT 91
[2022-05-18] MEDS ORDERED: Epinephrine Preservative Free 1 MG/ML ONE (15:29)
== END 2022-05-18 11:00 | disposition home or self-care (01) ==
LOC: SDC 08:37
PROVIDERS: ATTEND Ophthalmology
DX: H25.811 Combined forms of age-related cataract, right eye (principal)
CPT/HCPCS: 99100; C1780; J0171; J2250; J2405; J2704; J3010; A9270-GY

== ENCOUNTER 2023-04-25 12:03 | Emergency (ER) | payer MEDICARE, OTHER ==
[2023-04-25 12:28] VITALS: TEMP 97.9
[2023-04-25 13:18] LABS: BASOPHIL % 0.4 % (0.0-0.4); Basophil (Absolute #) 0.04 x10^3/uL (0-0.4); Eosinophil % 0.6 % (0.00-5.0); Eosinophil (Absolute #) 0.07 x10^3/uL (0-0.5); Hematocrit 38.3 % (35-47); Hemoglobin 12.3 g/dL (12.0-16.0); IMMATURE GRAN # 0.04 x10^3u/L (0.00-0.03); IMMATURE GRAN % 0.4 % (0.00-0.4); Lymphocyte (Absolute #) 2.15 x10^3/uL (1.0-4.6); Lymphocytes % 19.2 % (24.0-44.0); Mean Cell Volume 92.7 fL (78-100); Mean Corpuscular Hemoglobin 29.8 pg (26-32); Mean Corpuscular Hgb Concent. 32.1 g/dL (32-36); Mean Platelet Volume 9.7 fL (7.5-11.0); Monocyte (Absolute #) 1.09 x10^3/uL (0.0-1.3); Monocytes % 9.7 % (0.0-12.0); Neutrophil % 69.7 % (36.0-66.0); Platelet Count 385 x10^3/uL (150-450); Red Blood Count 4.13 x10^6/uL (4.1-5.4); Red Cell Distribution Width 13.2 % (11.5-14.0); White Blood Count 11.2 x10^3/uL (4.0-10.5)
[2023-04-25 13:33] LABS: BILIRUBIN,TOTAL 0.6 mg/dL (0.2-1.3); Calcium 9.5 mg/dL (8.4-10.2); Creatinine 1 0.5 mg/dL (0.52-1.04); EST GLOMERULAR FILTRATION RATE 100.2 ML/MIN; Potassium 3.6 mmol/L (3.5-5.1); Total Protein 7.4 g/dL (6.3-8.2)
[2023-04-25 13:39] LABS: INR 1.04 (0.8-3.0); PROTIME 11.3 SECONDS (9.4-12.5); PTT 35.7 SECONDS (25.1-36.5)
--- NOTE | 2023-04-25 13:40 | ERPHSYRPT ---
- History of Present Illness Source: patient Exam Limitations: no limitations Patient Subjective Stated Complaint: fatigues, cough, chest pain from coughing Triage Nursing Assessment: Pt brought self to the ER, vitals wnl, rates generalized pain as a /10, pt states that her symptoms began a couple of weeks ago but they have gotten worse, pulses normal, skin n/w/d, pt's lungs sound like snoring Physician History: 72-year-old female presents to the ER with a mildly productive cough for 2 weeks. Patient has had a subjective fever at home. She has been mildly nauseated but denies vomiting, diarrhea, sore throat, melena, hematochezia,. Patient has mild dyspnea upon exertion. She denies any chest pain. Patient has not seen her family doctor about this condition. Past medical history includes hypertension, atrial fibrillation, stroke without residual weakness, and Eliquis use for A-fib. Patient presents in no apparent distress. She has no smoking history. Timing/Duration: other (2 weeks) Cough Quality/Degree: productive cough Possible Cause: no prior episodes Modifying Factors: Improves With: other (Mild dyspnea upon exertion.) Associated Symptoms: fever, cough Allergies/Adverse Reactions: No Known Drug Allergies Allergy (Verified 04/25/23 12:28) Home Medications: Budesonide/Formoterol Fumarate [Symbicort 80-4.5 Mcg Inhaler] 2 puffs IH DAILY 09/21/16 [History] Escitalopram Oxalate [Lexapro] 20 mg PO DAILY 09/21/16 [History] Fenofibrate Nanocrystallized [Fenofibrate] 150 mg PO DAILY 09/21/16 [History] Losartan Potassium 25 mg PO DAILY 09/21/16 [History] Montelukast Sodium [Singulair] 10 mg PO DAILY 09/21/16 [History] PANTOPRAZOLE 40 mg Tablet [Protonix 40MG Tablet] 40 mg PO DAILY PRN PRN 09/21/16 [History] Tiotropium [place] [Spiriva] 18 mcg IH DAILY 09/21/16 [History] Apixaban [Eliquis 2.5 mg Tablet] 2.5 mg PO BID 04/25/23 [History] Hx Tetanus, Diphtheria Vaccination/Date Given: Yes Hx Influenza Vaccination/Date Given: Yes Hx Pneumococcal Vaccination/Date Given: Yes Travel Risk - International Travel Have you traveled outside of the country in past 3 weeks: No - Coronavirus Screening Are you exhibiting any of the following symptoms?: No Close contact with a COVID-19 positive Pt in past 14-21 Days: No - Vaccine Status Have you recieved a Covid-19 vaccination: Yes 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: [employer] - Vaccination Dates Date of 2cond Vaccination (if applicable): 09/08/2020 - Review of Systems Constitutional: No Symptoms, Fever (Subjective), Malaise Eyes: No Symptoms Ears, Nose, & Throat: No Symptoms Respiratory: No Symptoms, Cough, Dyspnea on Exertion ([place]RIS) Cardiac: No Symptoms Abdominal/Gastrointestinal: No Symptoms Genitourinary Symptoms: No Symptoms Musculoskeletal: No Symptoms Skin: No Symptoms Neurological: No Symptoms Psychological: No Symptoms Endocrine: No Symptoms Hematologic/Lymphatic: No Symptoms Immunological/Allergic: No Symptoms - Past Medical History Pertinent Past Medical History: Yes Neurological History: No Pertinent History, Stroke, TIA ENT History: Cataracts Cardiac History: High Cholesterol, Hypertension Respiratory History: Asthma Endocrine Medical History: No Pertinent History Musculoskeletal History: Arthritis, Osteoporosis, Other GI Medical History: Diverticulitis, GERD, Hernia, Polyps History: No Pertinent History Psycho-Social History: No Pertinent History Female Reproductive Disorders: No Pertinent History Other Medical History: sarcoidosis, osteoporosis, TIA-JUN 2021 - Past Surgical History Past Surgical History: Yes Neuro Surgical History: No Pertinent History Cardiac: No Pertinent History Respiratory: No Pertinent History Gastrointestinal: Bowel Surgery, Cholecystectomy, Hernia Repair Genitourinary: No Pertinent History Musculoskeletal: Other Female Surgical History: Hysterectomy, Tubal Ligation Other Surgical History: esophageal reduction, kyphoplasty - Social History Smoking Status: Never smoker Exposure to second hand smoke: No Drug Use: none Patient Lives Alone: No - Nursing Vital Signs Nursing Vital Signs: Initial Vital Signs Temperature 97.9 F 04/25/23 12:16 Pulse Rate 71 04/25/23 12:16 Respiratory Rate 20 04/25/23 12:16 Blood Pressure 139/68 04/25/23 12:16 O2 Sat by Pulse Oximetry 95 04/25/23 12:16 Pain Scale Pain Intensity 1 Borderline hypertensive - Physical Exam General Appearance: no apparent distress Eye Exam: PERRL/EOMI, eyes nml inspection Ears, Nose, Throat Exam: normal ENT inspection, TMs normal, pharynx normal, moist mucous membranes Neck Exam: normal inspection, non-tender, supple, full range of motion, No meningismus, No mass, No Brudzinski, No Kernig's, No carotid bruit Respiratory Exam: normal breath sounds, lungs clear, airway intact, No respiratory distress Cardiovascular Exam: regular rate/rhythm, normal heart sounds, normal peripheral pulses, capillary refill <2 sec, No murmur Gastrointestinal/Abdomen Exam: soft, normal bowel sounds Back Exam: normal inspection, normal range of motion Extremity Exam: normal inspection, normal range of motion Neurologic Exam: alert, oriented x 3, cooperative, 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, normal mood/affect, nml cerebellar function, nml station & gait, sensation nml, No motor deficits, No sensory deficit Skin Exam: normal color Lymphatic Exam: No adenopathy SpO2 Interpretation: normal SpO2: 94 O2 Delivery: Room Air - Course Nursing assessment & vital signs reviewed: Yes - Radiology Exams Chest X-ray Interpretation: Teleradiologist Report (Right middle lower lobe pneumonia) Ordered Tests: Active Orders 24 hr Category Date Time Status CHEST 1 VIEW (PORTABLE) Stat Exams 04/25/23 12:47 Completed CBC W DIFF Stat Lab 04/25/23 13:14 Completed CMP Stat Lab 04/25/23 13:14 Completed NT PRO BNPII Stat Lab 04/25/23 13:14 Completed PROTIME WITH INR Stat Lab 04/25/23 13:14 Completed PTT Stat Lab 04/25/23 13:14 Completed TROPONIN Q4H Lab 04/25/23 13:14 Completed TROPONIN Q4H Lab 04/25/23 17:00 Ordered TROPONIN Q4H Lab 04/25/23 21:00 Ordered Lab/Rad Data: Laboratory Result Diagrams 04/25/23 13:14 04/25/23 13:14 Laboratory Results 04/25/23 04/25/23 04/25/23 Range/Units 13:14 13:14 13:14 WBC (4.0-10.5) x10^3/uL RBC (4.1-5.4) x10^6/uL Hgb (12.0-16.0) g/dL Hct (35-47) % MCV (78-100) fL MCH (26-32) pg MCHC (32-36) g/dL RDW (11.5-14.0) % Plt Count (150-450) x10^3/uL MPV (7.5-11.0) fL Gran % (36.0-66.0) % Immature Gran % (Auto) (0.00-0.4) % Nucleat RBC Rel Count (0.00-0.1) % Eos # (Auto) (0-0.5) x10^3/uL Immature Gran # (Auto) (0.00-0.03) x10^3u/L Absolute Lymphs (auto) (1.0-4.6) x10^3/uL Absolute Monos (auto) (0.0-1.3) x10^3/uL Absolute Nucleated RBC (0.00-0.01) x10^3u/L Lymphocytes % (24.0-44.0) % Monocytes % (0.0-12.0) % Eosinophils % (0.00-5.0) % Basophils % (0.0-0.4) % Absolute Granulocytes (1.4-6.9) x10^3/uL Basophils # (0-0.4) x10^3/uL PT (9.4-12.5) SECONDS INR (0.8-3.0) APTT (25.1-36.5) SECONDS Sodium (137-145) mmol/L Potassium (3.5-5.1) mmol/L Chloride (98-107) mmol/L Carbon Dioxide (22-30) mmol/L Anion Gap (5-15) MEQ/L BUN (7-17) mg/dL Creatinine (0.52-1.04) mg/dL Estimated GFR ML/MIN Glucose (74-106) mg/dL Calcium (8.4-10.2) mg/dL Total Bilirubin (0.2-1.3) mg/dL AST (14-36) U/L ALT (0-35) U/L Alkaline Phosphatase (38-126) U/L Troponin I < 0.012 (0.000-0.034) ng/mL NT-Pro-B Natriuret Pep 572 (<300) pg/mL Serum Total Protein (6.3-8.2) g/dL Albumin (3.5-5.0) g/dL Influenza Type A Ag NEGATIVE (NEGATIVE) Influenza Type B Ag NEGATIVE (NEGATIVE) RSV (PCR) NEGATIVE (NEGATIVE) SARS-CoV-2 (PCR) NEGATIVE (NEGATIVE) 04/25/23 04/25/23 04/25/23 Range/Units 13:14 13:14 13:14 WBC 11.2 H (4.0-10.5) x10^3/uL RBC 4.13 (4.1-5.4) x10^6/uL Hgb 12.3 (12.0-16.0) g/dL Hct 38.3 (35-47) % MCV 92.7 (78-100) fL MCH 29.8 (26-32) pg MCHC 32.1 (32-36) g/dL RDW 13.2 (11.5-14.0) % Plt Count 385 (150-450) x10^3/uL MPV 9.7 (7.5-11.0) fL Gran % 69.7 H (36.0-66.0) % Immature Gran % (Auto) 0.4 (0.00-0.4) % Nucleat RBC Rel Count 0.0 (0.00-0.1) % Eos # (Auto) 0.07 (0-0.5) x10^3/uL Immature Gran # (Auto) 0.04 H (0.00-0.03) x10^3u/L Absolute Lymphs (auto) 2.15 (1.0-4.6) x10^3/uL Absolute Monos (auto) 1.09 (0.0-1.3) x10^3/uL Absolute Nucleated RBC 0.00 (0.00-0.01) x10^3u/L Lymphocytes % 19.2 L (24.0-44.0) % Monocytes % 9.7 (0.0-12.0) % Eosinophils % 0.6 (0.00-5.0) % Basophils % 0.4 (0.0-0.4) % Absolute Granulocytes 7.80 H (1.4-6.9) x10^3/uL Basophils # 0.04 (0-0.4) x10^3/uL PT 11.3 (9.4-12.5) SECONDS INR 1.04 (0.8-3.0) APTT 35.7 (25.1-36.5) SECONDS Sodium 138 (137-145) mmol/L Potassium 3.6 (3.5-5.1) mmol/L Chloride 105 (98-107) mmol/L Carbon Dioxide 25 (22-30) mmol/L Anion Gap 11.0 (5-15) MEQ/L BUN 17 (7-17) mg/dL Creatinine 0.50 L (0.52-1.04) mg/dL Estimated GFR 100.2 ML/MIN Glucose 102 (74-106) mg/dL Calcium 9.5 (8.4-10.2) mg/dL Total Bilirubin 0.60 (0.2-1.3) mg/dL AST 25 (14-36) U/L ALT 16 (0-35) U/L Alkaline Phosphatase 52 (38-126) U/L Troponin I (0.000-0.034) ng/mL NT-Pro-B Natriuret Pep (<300) pg/mL Serum Total Protein 7.4 (6.3-8.2) g/dL Albumin 4.0 (3.5-5.0) g/dL Influenza Type A Ag (NEGATIVE) Influenza Type B Ag (NEGATIVE) RSV (PCR) (NEGATIVE) SARS-CoV-2 (PCR) (NEGATIVE) - Progress Air Movement: good Progress Note: 04/25/23 14:53 Nursing note and vital signs reviewed. No food or housing insecurity is noted. All lab results reviewed and shared with patient. Chest x-ray result reviewed and shared with patient. Chest x-ray demonstrates a possible right lower middle lobe pneumonia per radiology. Patient with good sats during entire visit and lungs clear to auscultation during her entire visit. Patient be treated with Levaquin 750 mg p.o. daily for 7 days. Patient vies follow-up with her family MD in 2 to 3 days. She was also advised to return to ER for worsening cough, increasing shortness of breath, or temperature greater 100.5. No evidence of sepsis observed during her ER stay. Counseled pt/family regarding: lab results, diagnosis, need for follow-up, rad results - Departure Departure Disposition: Home Clinical Impression: Pneumonia Condition: Stable Critical Care Time: No Referrals: JOSE OVERTON [Primary Care Provider] - Follow up/PCP as directed Instructions: Pneumonia, Adult (DC) Additional Instructions: Fluids. Levaquin once a day for 7 days. Follow-up with your family MD in 2 to 3 days. Return to ER for worsening cough, worsening shortness of breath, or temperature greater 100.5. Prescriptions: levoFLOXacin [Levofloxacin] 750 mg PO DAILY #7 tablet
[2023-04-25 13:57] LABS: INFLUENZA A NEGATIVE (NEGATIVE); INFLUENZA B NEGATIVE (NEGATIVE); RESPIRATORY SYNCTIAL VIRUS NEGATIVE (NEGATIVE); SARS-CoV-2 Xpert Express NEGATIVE (NEGATIVE)
[2023-04-25 14:04] VITALS: PULSE 78; RESP 19
--- NOTE | 2023-04-25 14:18 | XRAY ---
CLINICAL HISTORY:cough COMPARISON:None. TECHNIQUE:X-ray of the chest showing 1 view: AP erect view. FINDINGS: A radiographic examination of the chest demonstrates right basal opacification is seen obscuring the cardiac border consistent with right lower and middle lobe consolidation. There are multiple oval hyperdense opacities noted along the right mediastinal border could suggest calcific foci within enlarged collaterals. Normal configuration of the mediastinum. The ange are normal in size and position. The cardiac size cannot be accurately assessed on this AP view. Blurred left costophrenic angle. Right costophrenic and cardiophrenic angles are clear. Retrocardiac and retrosternal spaces are normal. Bony thorax is unremarkable. IMPRESSION: 1. Right basal opacification is seen obscuring the cardiac border consistent with right lower and middle lobe consolidation. 2. Picture of pneumonic reaction for clinical and laboratory correlation and follow-up. 3. Multiple oval hyperdense opacities noted along the right mediastinal border could suggest calcific foci within enlarged collaterals. 4. CT chest correlation is advised if clinically warranted. 5. Blurred left costophrenic angle. Electronically Signed by: Gil Parisi MD. (04/25/2023 14:13:17 EST)
[2023-04-25 14:52] VITALS: O2SAT 94
[2023-04-25 15:06] VITALS: BP 158/91
== END 2023-04-25 15:06 | disposition home or self-care (01) ==
LOC: ED 12:03
DX: J18.9 Pneumonia, unspecified organism (principal); R05.1 Acute cough; R11.0 Nausea; R06.09 Other forms of dyspnea; E78.5 Hyperlipidemia, unspecified; I10 Essential (primary) hypertension; Z79.01 Long term (current) use of anticoagulants; Z79.899 Other long term (current) drug therapy
CPT/HCPCS: 0241U; 36415; 71045; 80053; 83880; 84484; 85025; 85610; 85730; 99283

== ENCOUNTER 2024-04-12 14:34 | Day surgery (SDC) | payer MEDICARE, OTHER ==
[2024-04-12] MEDS ORDERED: BUPIVACAINE 0.5% VIAL IJ ONE (14:35)
[2024-04-12] MEDS ORDERED: Depo-Medrol 40 MG/ML IM ONE (14:35)
[2024-04-12] MEDS ORDERED: DIPRIVAN 200 MG/20 ML IV ONE (15:54)
--- NOTE | 2024-04-12 21:52 | XRAY ---
Indication: Left knee injection. Intraoperative fluoroscopy provided for 10 seconds. Single digital spot images submitted for interpretation demonstrates needle tip projecting over left femur intercondylar notch. Small amount of contrast injected for needle tip placement. Correlate with intraoperative findings/report.
--- NOTE | 2024-04-12 21:59 | XRAY ---
10 seconds of fluoroscopy was used in surgery for a left intra-articular knee injection.
== END 2024-04-12 16:20 | disposition home or self-care (01) ==
LOC: SDC-PAIN 14:34
PROVIDERS: ATTEND Psychiatry & Neurology Pain Medicine
DX: M17.12 Unilateral primary osteoarthritis, left knee (principal)
CPT/HCPCS: 20610; 73560; 77002; 77003; J2704; Q9966

== ENCOUNTER 2024-05-10 20:43 | Emergency (ER) | payer MEDICARE, OTHER ==
[2024-05-10 21:58] VITALS: RESP 19; TEMP 99.1
[2024-05-10] MEDS ORDERED: NORCO 5/325 MG ONE (22:01)
[2024-05-10] MEDS: NORCO 5/325 MG PO ONE (22:02)
[2024-05-10 22:05] VITALS: O2SAT 95
--- NOTE | 2024-05-10 22:27 | ERPHSYRPT ---
- History of Present Illness Time Seen by Provider: 05/10/24 21:44 Patient Subjective Stated Complaint: c/o right sided hip and neck pain post-fall Triage Nursing Assessment: patient brought in by son with c/o right sided neck and rib pain. Patient rates rib pain 7/10 amd neck pain of 5/10 patient stated she tripped over a mole hill, patient states she hit her face on the ground. pt has a busted lip and and a scratch on her nose. Patient stated she heard her neck pop and was scared to get up. C-Collar applied. patient is AxOx3, skin w/n/d, pulses normal, gait steady, denies blurred vision, N/V, or LOC. doesn't appear to bein any distress at this time. Physician History: 73 years old female presented in the ER after she slipped in her yard and fell face forward hitting her nose against the ground with bleeding from the lower lip which stopped on presentation in the ER. No epistaxis. Complaining of pain in the nose, some in the neck and right chest wall. No difficulty breathing. Denies any loss of consciousness. No numbness tingling or focal weakness. Patient was able to get up with help. Denies any visual disturbance. Patient is on Eliquis. Has some bruising at the bridge of nose with no crepitus but tenderness. Lower lip abrasion but no active bleeding or spurting. No loose teeth. No cervical spine tenderness. Patient is in c-collar on presentation in the ER. Has some tenderness in the right lower anterior chest wall with no crepitus or flail segment. No abdominal tenderness. She is given [place] for symptomatic relief and feeling better on reevaluation. It was a mechanical fall and I do not think she needs any other workup but imaging. CT head cervical spine and facial bones are negative for any acute trauma findings. C-collar is removed and is able to move her neck in all directions without any limitations. X-ray rib series and 1 view chest are negative for any acute intrathoracic and rib cage trauma findings. I believe patient has contusion of the rib/face and some strain in the neck. Recommended taking Tylenol as needed, intermittent ice application and outpatient follow-up. Discussed signs symptoms of worsening needing return to ER which she seems understanding. Stable for discharge. Allergies/Adverse Reactions: ibuprofen Adverse Reaction (Verified 05/10/24 22:00) patient bleeds Home Medications: Budesonide/Formoterol Fumarate [Symbicort 80-4.5 Mcg Inhaler] 2 puffs IH DAILY 09/21/16 [History] Escitalopram Oxalate [Lexapro] 20 mg PO DAILY 09/21/16 [History] Fenofibrate Nanocrystallized [Fenofibrate] 150 mg PO DAILY 09/21/16 [History] Losartan Potassium 25 mg PO DAILY 09/21/16 [History] Montelukast Sodium [Singulair] 10 mg PO DAILY 09/21/16 [History] PANTOPRAZOLE 40 mg Tablet [Protonix 40MG Tablet] 40 mg PO DAILY PRN PRN 09/21/16 [History] Tiotropium [place] [Spiriva] 18 mcg IH DAILY 09/21/16 [History] Apixaban [Eliquis 2.5 mg Tablet] 2.5 mg PO BID 04/25/23 [History] Hx Tetanus, Diphtheria Vaccination/Date Given: Yes Hx Influenza Vaccination/Date Given: Yes Hx Pneumococcal Vaccination/Date Given: Yes Travel Risk - International Travel Have you traveled outside of the country in past 3 weeks: No - Emerging Infectious Disease Are you exhibiting symptoms associated with any current EIDs: No - Review of Systems Constitutional: No Symptoms Eyes: No Symptoms Ears, Nose, & Throat: Nose Pain Respiratory: No Symptoms Cardiac: Chest Pain (Right anterolateral chest wall pain) Abdominal/Gastrointestinal: No Symptoms Genitourinary Symptoms: No Symptoms Musculoskeletal: Neck Pain, Fall, Injury Skin: No Symptoms Neurological: No Symptoms Endocrine: No Symptoms Hematologic/Lymphatic: Easy Bleeding Immunological/Allergic: No Symptoms - Past Medical History Pertinent Past Medical History: Yes Neurological History: No Pertinent History, Stroke, TIA ENT History: Cataracts Cardiac History: High Cholesterol, Hypertension Respiratory History: Asthma Endocrine Medical History: No Pertinent History Musculoskeletal History: Arthritis, Osteoporosis, Other GI Medical History: Diverticulitis, GERD, Hernia, Polyps History: No Pertinent History Psycho-Social History: No Pertinent History Female Reproductive Disorders: No Pertinent History Other Medical History: sarcoidosis, osteoporosis, TIA-JUN 2021 - Past Surgical History Past Surgical History: Yes Neuro Surgical History: No Pertinent History Cardiac: No Pertinent History Respiratory: No Pertinent History Gastrointestinal: Bowel Surgery, Cholecystectomy, Hernia Repair Genitourinary: No Pertinent History Musculoskeletal: Other Female Surgical History: Hysterectomy, Tubal Ligation Other Surgical History: esophageal reduction, kyphoplasty - Social History Smoking Status: Never smoker Exposure to second hand smoke: No Drug Use: none Patient Lives Alone: No - Social Determinants of Health Will the patient participate in the screening: Yes Do you worry about a steady place to live?: No Do you have any problems with any of the following?: No known problems In the past 12 months,have you had to go without utilities?: No Transportation Issues: No Has anyone in your support network made you feel unsafe?: No Have you or anyone in your house had to go without enough: No - Nursing Vital Signs Nursing Vital Signs: Initial Vital Signs Temperature 99.1 F 05/10/24 21:37 Pulse Rate 76 05/10/24 21:37 Respiratory Rate 19 05/10/24 21:37 Blood Pressure 175/76 05/10/24 21:37 O2 Sat by Pulse Oximetry 97 05/10/24 21:37 Pain Scale Pain Intensity 7 - Cyndi Coma Score Best Eye Response ([place]yndi): (4) open spontaneously Best Verbal Response (Cyndi): (5) oriented Best Motor Response ([place]): (6) obeys commands Cyndi Total: 15 - Physical Exam General Appearance: no apparent distress, alert Head Injury: no evidence of injury Eye Exam: PERRL/EOMI, eyes nml inspection ENT Exam: airway nml, other (Lower lip abrasion) Neck Exam: supple, trachea midline, normal alignment, c-collar in place Respiratory/Chest Exam: chest tenderness (Right anterolateral lower chest wall), normal breath sounds, No respiratory distress Cardiovascular Exam: normal heart sounds, regular rate/rhythm Gastrointestinal Exam: soft, normal bowel sounds, No tenderness Back Exam: normal inspection Extremity Exam: normal inspection, normal range of motion Neurologic Exam: alert, oriented x 3, 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, 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, normal mood/affect, nml cerebellar function, sensation nml, No motor deficits Skin Exam: normal color SpO2 Interpretation: normal SpO2: 95 O2 Delivery: Room Air Ordered Tests: Active Orders 24 hr Category Date Time Status CERVICAL SPINE WO CONTRAST [CT] Stat Exams 05/10/24 22:27 Completed FACIAL BONES WO CONTRAST [CT] Stat Exams 05/10/24 22:27 Completed HEAD WITHOUT CONTRAST [CT] Stat Exams 05/10/24 22:27 Completed RIBS UNILATERAL W/ PA CXR Stat Exams 05/10/24 23:39 Completed Medication Summary Discontinued Medications Generic Name Dose Route Start Last Admin Trade Name Maribel PRN Reason Stop Dose Admin Hydrocodone Bitart/Acetaminophen 1 tab 05/10/24 21:59 05/10/24 22:02 Hydrocodone/Apap 5/325 1 Tab Tablet PO 05/10/24 22:00 1 tab STAT ONE Administration Hydrocodone Bitart/Acetaminophen Confirm 05/10/24 22:01 Hydrocodone/Apap 5/325 1 Tab Tablet Administered 05/10/24 22:02 Dose 1 tab .ROUTE .STValidas-MED ONE - Progress Progress: improved Progress Note: 05/11/24 00:41 73 years old female presented in the ER after she slipped in her yard and fell face forward hitting her nose against the ground with bleeding from the lower lip which stopped on presentation in the ER. No epistaxis. Complaining of pain in the nose, some in the neck and right chest wall. No difficulty breathing. Denies any loss of consciousness. No numbness tingling or focal weakness. Patient was able to get up with help. Denies any visual disturbance. Patient is on Eliquis. Has some bruising at the bridge of nose with no crepitus but tenderness. Lower lip abrasion but no active bleeding or spurting. No loose teeth. No cervical spine tenderness. Patient is in c-collar on presentation in the ER. Has some tenderness in the right lower anterior chest wall with no crepitus or flail segment. No abdominal tenderness. She is given [place] for symptomatic relief and feeling better on reevaluation. It was a mechanical fall and I do not think she needs any other workup but imaging. CT head cervical spine and facial bones are negative for any acute trauma findings. C-collar is removed and is able to move her neck in all directions without any limitations. X-ray rib series and 1 view chest are negative for any acute intrathoracic and rib cage trauma findings. I believe patient has contusion of the rib/face and some strain in the neck. Recommended taking Tylenol as needed, intermittent ice application and outpatient follow-up. Discussed signs symptoms of worsening needing return to ER which she seems understanding. Stable for discharge. Counseled pt/family regarding: diagnosis, need for follow-up, rad results Medical Desision Making - Independent Historian Additional History obtained from: Child - Diagnostic Testing Diagnostic test were ordered, analyzed, and reviewed by me: Yes Radiological Interpretation: Reviewed by me, Teleradiologist Report - Risk of complications The pt has a mod risk of morbidity or mortality based on: Need for prescription drug management - Departure Departure Disposition: Home Clinical Impression: Chest wall contusion, Facial contusion, Fall, Cardiomegaly Condition: Stable Critical Care Time: No Referrals: JOSE OVERTON [Primary Care Provider] - Follow up with PCP 1 day DOMINIC CAGLE [CONSULTING PHYSICIAN] - Follow up/PCP as directed (Call for appointment) Instructions: Contusion (DC), Rib Fracture or Bruised Rib ED Additional Instructions: Intermittent ice application, and do deep breathing exercises. Tylenol as needed. Follow-up with primary care for reevaluation and may need referral appointment/follow-up with cardiology for further evaluation of cardiomegaly. Take pain medication which you have at home as needed. Return to ER for any new worsening of pain in the chest, neck, intractable headache, numbness tingling focal weakness etc.
--- NOTE | 2024-05-10 23:13 | XRAY ---
CLINICAL HISTORY: fall, facial injuries COMPARISON: None. TECHNIQUE: Computed tomography of the orbits/face was performed without intravenous contrast. Contiguous axial images were obtained. Reformatted coronal and sagittal images were also reviewed. CT scan was performed according to ALARA (as low as reasonably achievable). FINDINGS: No acute facial fractures. Mild bilateral maxillary and moderate bilateral ethmoidal sinusitis is noted. The globes, optic nerves, extraocular muscles and retro-orbital fat are grossly unremarkable. Reformatted imaging demonstrates intact roof and floor of the orbits. Included portions of the mandible are intact. The included intracranial substances and airway are unremarkable. IMPRESSION: 1. No obvious displaced fracture noted involving the facial bones. 2. Mild bilateral maxillary and moderate bilateral ethmoidal sinusitis. Electronically Signed by: Farshad Will MD. (05/10/2024 23:08:45 EST)
--- NOTE | 2024-05-10 23:15 | XRAY ---
CLINICAL HISTORY: fall, facial injuries COMPARISON: None. TECHNIQUE: Multiple axial images are obtained from the skull base to the vertex without contrast. CT scan was performed according to ALARA (as low as reasonably achievable). FINDINGS: There is cerebral atrophy. The zepeda-white matter differentiation is preserved. There are scattered periventricular hypodensities as can be seen with chronic microvascular ischemic changes. No evidence of space occupying lesion, hemorrhage, edema, mass effect, midline shift, extra axial collection, or hydrocephalus is noted. Basal cisterns are symmetric and normal in size and configuration. Mild bilateral maxillary and moderate bilateral ethmoidal sinusitis is noted. Rest of the paranasal sinuses appear normal. Orbital contents are within normal limits. Bony structures are intact. IMPRESSION: 1. No evidence of acute intracranial abnormality is demonstrated. 2. Chronic microvascular ischemic changes. 3. Cerebral atrophy. 4. Mild bilateral maxillary and moderate bilateral ethmoidal sinusitis is noted. Electronically Signed by: Farshad Will MD. (05/10/2024 23:11:20 EST)
--- NOTE | 2024-05-10 23:17 | XRAY ---
CLINICAL HISTORY: fall, facial injuries COMPARISON: None. TECHNIQUE: Computed tomography of the cervical spine performed without intravenous contrast. Contiguous axial images were obtained from the skull base to T2, with sagittal and coronal reformatted images reconstructed from the axial data. CT scan was performed according to ALARA (as low as reasonably achievable). FINDINGS: Straightening of the cervical spine is noted. Alignment of spine is maintained. Vertebral bodies are normal in height. No evidence of fracture. Lateral masses of C1 are symmetrical, and the dens is intact. Prevertebral soft tissues are not widened. The remaining suprahyoid and infrahyoid soft tissues in the neck are unremarkable. C2-C3: No disc bulge, mass effect on the cord or neuroforaminal narrowing. C3-C4: No disc bulge, mass effect on the cord or neuroforaminal narrowing. C4-C5: No disc bulge, mass effect on the cord or neuroforaminal narrowing. C5-C6: No disc bulge, mass effect on the cord or neuroforaminal narrowing. C6-C7: No disc bulge, mass effect on the cord or neuroforaminal narrowing. C7-T1: No disc bulge, mass effect on the cord or neuroforaminal narrowing. Few small hypodense nodules are noted in both lobes of thyroid gland. IMPRESSION: 1. No acute fracture or subluxation in the cervical spine. 2. Few small hypodense nodules are noted in both lobes of thyroid gland. Ultrasound correlation is suggested. Electronically Signed by: Farshad Will MD. (05/10/2024 23:12:05 EST)
[2024-05-11 00:23] VITALS: BP 161/53; PULSE 83
--- NOTE | 2024-05-11 00:28 | XRAY ---
CLINICAL HISTORY: fall COMPARISON: None. TECHNIQUE: Radiograph of chest and ribs was acquired. FINDINGS: Linear peripheral opacities noted along the right lateral chest wall, pleural effusion versus pleural thickening. Multiple discrete opacities are noted involving right hilar/perihilar region, possible mediastinal lymphadenopathy. Blunting of the left costophrenic angle is noted, either secondary to the cardiac shadow or pleural effusion. Moderate to gross cardiomegaly is noted. No acute osseous abnormality. IMPRESSION: 1. Linear peripheral opacity is noted along the right lateral chest wall, pleural effusion versus pleural thickening. 2. Multiple discrete opacities are noted involving right hilar/perihilar region, possible mediastinal lymphadenopathy. 3. Obscuration of the left costophrenic angle is noted, either secondary to the cardiac shadow or pleural effusion. 4. Moderate to gross cardiomegaly is noted. 5. No obvious acute displaced rib fractures are detected. CT chest is suggested for better evaluation. Electronically Signed by: Farshad Will MD. (05/11/2024 00:24:40 EST)
== END 2024-05-11 01:00 | disposition home or self-care (01) ==
LOC: ED 20:43
DX: S20.219A Contusion of unspecified front wall of thorax, initial encounter (principal); S00.83XA Contusion of other part of head, initial encounter; M54.2 Cervicalgia; S00.511A Abrasion of lip, initial encounter; J34.89 Other specified disorders of nose and nasal sinuses; R07.89 Other chest pain; W01.198A Fall on same level from slipping, tripping and stumbling with subsequent striking against other object, initial encounter; Z79.899 Other long term (current) drug therapy; Z79.01 Long term (current) use of anticoagulants; I51.7 Cardiomegaly
CPT/HCPCS: 70450; 70486; 71101; 72125; 99284; A9270-GY

== ENCOUNTER 2024-07-08 19:58 | Emergency (ER) | payer MEDICARE, OTHER ==
[2024-07-08 20:29] VITALS: PULSE 107; RESP 18; TEMP 100.5
[2024-07-08] MEDS ORDERED: TYLENOL EXTRA STRENGTH 500 MG ONE (20:35)
[2024-07-08] MEDS ORDERED: ZOFRAN ODT 4 MG ONE (20:35)
[2024-07-08] MEDS: TYLENOL EXTRA STRENGTH 500 MG PO STA (20:36)
[2024-07-08] MEDS: ZOFRAN ODT 4 MG PO ONE (20:36)
--- NOTE | 2024-07-08 20:43 | ERPHSYRPT ---
- History of Present Illness Source: patient Exam Limitations: no limitations Patient Subjective Stated Complaint: Pt. states, "I feel awful, my legs hurt my back hurts, I hurt all over. Can I have pain meds?" Son states, "She started feeling bad this afternoon, she vomited once when we got here. I got a call that she crawled up the stairs saying she needed to go to the hospital." Triage Nursing Assessment: pt. arrives via w/c, transferred to bed without assist. A&Ox3, immediately asking for pain meds for body aches, resp even unlabored, skin P/W/D, Vomited x 1 Physician History: Patient has fever chills malaise and myalgia. She has some diarrhea and vomiting is been going on for about 12 to 15 hours. She does not think she is dehydrated. She still urinating. She does not have any abdominal pain. She is not short of breath. She has some mild respiratory symptoms mainly just congestion no other issues. Timing/Duration: today Fever Severity: mild, moderate Allergies/Adverse Reactions: ibuprofen Adverse Reaction (Verified 05/10/24 22:00) patient bleeds Home Medications: Budesonide/Formoterol Fumarate [Symbicort 80-4.5 Mcg Inhaler] 2 puffs IH DAILY 09/21/16 [History] Escitalopram Oxalate [Lexapro] 20 mg PO DAILY 09/21/16 [History] Fenofibrate Nanocrystallized [Fenofibrate] 150 mg PO DAILY 09/21/16 [History] Losartan Potassium 25 mg PO DAILY 09/21/16 [History] Montelukast Sodium [Singulair] 10 mg PO DAILY 09/21/16 [History] PANTOPRAZOLE 40 mg Tablet [Protonix 40MG Tablet] 40 mg PO DAILY PRN PRN [History] Tiotropium [place] [Spiriva] 18 mcg IH DAILY 09/21/16 [History] Apixaban [Eliquis 2.5 mg Tablet] 2.5 mg PO BID 04/25/23 [History] Hx Tetanus, Diphtheria Vaccination/Date Given: No Hx Influenza Vaccination/Date Given: Yes Hx Pneumococcal Vaccination/Date Given: Yes Immunizations Up to Date: No Travel Risk - International Travel Have you traveled outside of the country in past 3 weeks: No - Emerging Infectious Disease Are you exhibiting symptoms associated with any current EIDs: Yes Symptoms: Fever, Headaches/Body Aches/, Vomitting - Review of Systems Constitutional: Fever, Chills, Malaise Eyes: No Symptoms Ears, Nose, & Throat: Nose Congestion Respiratory: No Symptoms Cardiac: No Symptoms, Chest Pain Abdominal/Gastrointestinal: Nausea, Vomiting, No Abdominal Pain Genitourinary Symptoms: No Symptoms Skin: No Symptoms - Past Medical History Pertinent Past Medical History: Yes Neurological History: No Pertinent History, Stroke, TIA ENT History: Cataracts Cardiac History: High Cholesterol, Hypertension Respiratory History: Asthma Endocrine Medical History: No Pertinent History Musculoskeletal History: Arthritis, Osteoporosis, Other GI Medical History: Diverticulitis, GERD, Hernia, Polyps History: No Pertinent History Psycho-Social History: No Pertinent History Female Reproductive Disorders: No Pertinent History Other Medical History: sarcoidosis, osteoporosis, TIA-JUN 2021 - Past Surgical History Past Surgical History: Yes Neuro Surgical History: No Pertinent History Cardiac: No Pertinent History Respiratory: No Pertinent History Gastrointestinal: Bowel Surgery, Cholecystectomy, Hernia Repair Genitourinary: No Pertinent History Musculoskeletal: Other Female Surgical History: Hysterectomy, Tubal Ligation Other Surgical History: esophageal reduction, kyphoplasty - Social History Smoking Status: Never smoker Exposure to second hand smoke: No Drug Use: none Patient Lives Alone: No - Social Determinants of Health Will the patient participate in the screening: Declined to provide Do you worry about a steady place to live?: No In the past 12 months,have you had to go without utilities?: No Transportation Issues: No Has anyone in your support network made you feel unsafe?: No Have you or anyone in your house had to go without enough: No - Nursing Vital Signs Nursing Vital Signs: Initial Vital Signs Temperature 100.5 F 07/08/24 20:09 Pulse Rate 107 H 07/08/24 20:09 Respiratory Rate 18 07/08/24 20:09 Blood Pressure 186/109 07/08/24 20:09 O2 Sat by Pulse Oximetry 95 07/08/24 20:09 Pain Scale Pain Intensity 10 - Physical Exam General Appearance: no apparent distress Eye Exam: PERRL/EOMI, eyes nml inspection ENT Exam: normal ENT inspection, no apparent trauma, hearing grossly normal Neck Exam: normal inspection Respiratory Exam: normal breath sounds, chest non-tender, lungs clear, no respiratory distress Cardiovascular/Chest Exam: normal heart sounds, regular rate/rhythm Gastrointestinal/Abdominal Exam: soft, non tender, no distention, no guarding Neurologic Exam: alert, oriented x 3, cooperative SpO2: 95 Ordered Tests: Medication Summary Discontinued Medications Generic Name Dose Route Start Last Admin Trade Name Maribel PRN Reason Stop Dose Admin Acetaminophen 1,000 mg 07/08/24 20:32 07/08/24 20:36 Acetaminophen 500 Mg Tablet PO 07/08/24 20:33 1,000 mg STAT STA Administration Acetaminophen Confirm 07/08/24 20:35 Acetaminophen 500 Mg Tablet Administered 07/08/24 20:36 Dose 1,000 mg .ROUTE .STK-MED ONE Ondansetron HCl 8 mg 07/08/24 20:33 07/08/24 20:36 Zofran 4 Mg/Udtablet Orally Disintegrating PO 07/08/24 20:34 8 mg STAT ONE Administration Ondansetron HCl Confirm 07/08/24 20:35 Zofran 4 Mg/Udtablet Orally Disintegrating Administered 07/08/24 20:36 Dose 8 mg .ROUTE .STK-MED ONE Lab/Rad Data: Laboratory Results 07/08/24 Range/Units 20:27 Influenza Type A Ag NEGATIVE (NEGATIVE) Influenza Type B Ag NEGATIVE (NEGATIVE) RSV (PCR) NEGATIVE (NEGATIVE) SARS-CoV-2 (PCR) NEGATIVE (NEGATIVE) - Progress Progress: improved Progress Note: On the differential diagnosis was COVID flu and RSV gastroenteritis and colitis. Also less likely to be pneumonia or intra-abdominal infection. Her exam was benign with the chest and abdomen so I think those are less likely.She took no meds for her symptoms. She was requesting something for pain. But some Tylenol and as well as some Zofran for the nausea All of her screening tests were negative includes COVID flu and RSV. At this time I think she just has gastroenteritis. Will send her home with some Zofran. She can follow-up with her primary care doctor and return if symptoms worsen. 07/08/24 20:41 07/08/24 21:39 - Departure Departure Disposition: Home Clinical Impression: Nausea vomiting and diarrhea Condition: Stable Critical Care Time: No Referrals: JOSE OVERTON [Primary Care Provider] - Follow up/PCP as directed Instructions: Viral gastroenteritis in adults
[2024-07-08 21:05] LABS: INFLUENZA A NEGATIVE (NEGATIVE); INFLUENZA B NEGATIVE (NEGATIVE); RESPIRATORY SYNCTIAL VIRUS NEGATIVE (NEGATIVE); SARS-CoV-2 Xpert Express NEGATIVE (NEGATIVE)
[2024-07-08 21:42] VITALS: BP 139/60
[2024-07-08 21:43] VITALS: O2SAT 95
== END 2024-07-08 21:52 | disposition home or self-care (01) ==
LOC: ED 19:58
DX: R11.2 Nausea with vomiting, unspecified (principal); R19.7 Diarrhea, unspecified; R50.9 Fever, unspecified; M79.10 Myalgia, unspecified site; E78.5 Hyperlipidemia, unspecified; I10 Essential (primary) hypertension; Z79.01 Long term (current) use of anticoagulants; Z79.899 Other long term (current) drug therapy
CPT/HCPCS: 0241U; 99283; Q0162; A9270-GY

== ENCOUNTER 2024-07-10 09:26 | Observation (INO) | payer MEDICARE, OTHER ==
--- NOTE | 2024-07-10 09:45 | ERPHSYRPT ---
- History of Present Illness Time Seen by Provider: 07/10/24 09:41 Source: patient Exam Limitations: no limitations Patient Subjective Stated Complaint: PT states "I was in here on the 9th and I was having body aches and nausea. I was sweating all night and now I am vomiti ng." Triage Nursing Assessment: Pt presented alert and oriented X 3, skin pwd.Pt ambulates with a slow gait, able to speak in clear full sentences. Pt resting comfortably on the bed without any difficulty. Physician History: 74-year-old female presents to our ED for evaluation of generalized weakness, nausea vomiting and sweating. Patient states her symptoms started 2 days ago. Patient presented to our ED. Patient states her viral panel was negative. Patient was discharged home on Zofran. Patient states her symptoms have gotten progressively worse. Patient unable to tolerate p.o. No active pain at this time. Patient otherwise feels well. She voices no other complaints or concerns at this time. Portions of this note were created with voice recognition technology. There may be grammatical, spelling, punctuation or sound alike errors Timing/Duration: day(s) Severity: moderate (2 days) Modifying Factors: Improves With: nothing Associated Symptoms: nausea, vomiting, malaise, No chest pain Allergies/Adverse Reactions: ibuprofen Adverse Reaction (Verified 05/10/24 22:00) patient bleeds Home Medications: Budesonide/Formoterol Fumarate [Symbicort 80-4.5 Mcg Inhaler] 2 puffs IH DAILY 09/21/16 [History] Escitalopram Oxalate [Lexapro] 20 mg PO DAILY 09/21/16 [History] Fenofibrate Nanocrystallized [Fenofibrate] 150 mg PO DAILY 09/21/16 [History] Losartan Potassium 25 mg PO DAILY 09/21/16 [History] PANTOPRAZOLE 40 mg Tablet [Protonix 40MG Tablet] 40 mg PO DAILY PRN PRN 09/21/16 [History] Apixaban [Eliquis 2.5 mg Tablet] 2.5 mg PO BID 04/25/23 [History] Hx Tetanus, Diphtheria Vaccination/Date Given: No Hx Influenza Vaccination/Date Given: Yes Hx Pneumococcal Vaccination/Date Given: Yes Immunizations Up to Date: No Travel Risk - International Travel Have you traveled outside of the country in past 3 weeks: No - Emerging Infectious Disease Are you exhibiting symptoms associated with any current EIDs: Yes Symptoms: Headaches/Body Aches/, Other (Please Comment) Comment: nausea - Review of Systems Constitutional: No Symptoms, No Fever, No Chills Eyes: No Symptoms Ears, Nose, & Throat: No Symptoms Respiratory: No Symptoms, No Cough, No Dyspnea Cardiac: No Symptoms, No Chest Pain, No Edema, No Syncope Abdominal/Gastrointestinal: No Symptoms, No Abdominal Pain, No Nausea, No Vomiting, No Diarrhea Genitourinary Symptoms: No Symptoms, No Dysuria Musculoskeletal: No Symptoms, No Back Pain, No Neck Pain Skin: No Symptoms, No Rash Neurological: No Symptoms, No Dizziness, No Focal Weakness, No Sensory Changes Psychological: No Symptoms Endocrine: No Symptoms Hematologic/Lymphatic: No Symptoms Immunological/Allergic: No Symptoms All Other Systems: Reviewed and Negative - Past Medical History Pertinent Past Medical History: Yes Neurological History: No Pertinent History, Stroke, TIA ENT History: Cataracts Cardiac History: High Cholesterol, Hypertension Respiratory History: Asthma Endocrine Medical History: No Pertinent History Musculoskeletal History: Arthritis, Osteoporosis, Other GI Medical History: Diverticulitis, GERD, Hernia, Polyps History: No Pertinent History Psycho-Social History: No Pertinent History Female Reproductive Disorders: No Pertinent History Other Medical History: sarcoidosis, osteoporosis, TIA-JUN 2021 - Past Surgical History Past Surgical History: Yes Neuro Surgical History: No Pertinent History Cardiac: No Pertinent History Respiratory: No Pertinent History Gastrointestinal: Bowel Surgery, Cholecystectomy, Hernia Repair Genitourinary: No Pertinent History Musculoskeletal: Other Female Surgical History: Hysterectomy, Tubal Ligation Other Surgical History: esophageal reduction, kyphoplasty - Social History Smoking Status: Never smoker Exposure to second hand smoke: No Drug Use: none Patient Lives Alone: No - Social Determinants of Health Will the patient participate in the screening: Declined to provide Do you worry about a steady place to live?: No In the past 12 months,have you had to go without utilities?: No Transportation Issues: No Has anyone in your support network made you feel unsafe?: No Have you or anyone in your house had to go without enough: No - Nursing Vital Signs Nursing Vital Signs: Initial Vital Signs Temperature 98.6 F 07/10/24 09:32 Pulse Rate 75 07/10/24 09:32 Respiratory Rate 20 07/10/24 09:32 Blood Pressure 91/66 07/10/24 09:32 O2 Sat by Pulse Oximetry 97 07/10/24 09:32 Pain Scale Pain Intensity 5 - Physical Exam General Appearance: no apparent distress, alert Eye Exam: PERRL/EOMI, eyes nml inspection Ears, Nose, Throat Exam: normal ENT inspection, TMs normal, pharynx normal, other (Dry oral mucous membranes) Neck Exam: normal inspection, non-tender, supple, full range of motion Respiratory Exam: normal breath sounds, lungs clear, airway intact, No respiratory distress Cardiovascular Exam: regular rate/rhythm, normal heart sounds, normal peripheral pulses Gastrointestinal/Abdomen Exam: soft, normal bowel sounds, No tenderness, No mass Back Exam: normal inspection, normal range of motion, No CVA tenderness, No vertebral tenderness Extremity Exam: normal inspection, normal range of motion, pelvis stable Neurologic Exam: alert, oriented x 3, cooperative, normal mood/affect, sensation nml, No motor deficits Skin Exam: normal color, warm, dry, No rash Lymphatic Exam: No adenopathy SpO2 Interpretation: normal SpO2: 97 O2 Delivery: Room Air - Course Nursing assessment & vital signs reviewed: Yes EKG Interpreted by Me: RATE (145), Sinus Tach, Left [place] Deviation, prolonged QT interval, NORMAL QRS - Radiology Exams Chest X-ray Interpretation: Teleradiologist Report (Nonacute chest with chronic features) Ordered Tests: Active Orders 24 hr Category Date Time Status Geriatric Psychiatrist STAT Care 07/10/24 09:39 Active EKG-ER Only STAT Care 07/10/24 09:45 Active IV Insertion STAT Care 07/10/24 09:39 Active Pulse Oximetry (ED) STAT Care 07/10/24 09:39 Active Telemetry q4h Care 07/10/24 10:32 Active CHEST 1 VIEW (PORTABLE) Stat Exams 07/10/24 09:39 Completed BLOOD CULTURE Stat Lab 07/10/24 10:06 Received CBC W DIFF Stat Lab 07/10/24 09:55 Completed CMP Stat Lab 07/10/24 09:55 Completed Lactic Acid Stat Lab 07/10/24 09:59 Completed MAG [MAGNESIUM] Stat Lab 07/10/24 10:19 Completed Manual Differential NC Stat Lab 07/10/24 09:55 Completed UA W/RFX UR CULTURE Stat Lab 07/10/24 09:39 Ordered Transfer Order Routine Transfer 07/10/24 Ordered Medication Summary Generic Name Dose Route Start Last Admin Trade Name Maribel PRN Reason Stop Dose Admin Potassium Chloride 20 meq in 100 mls @ 50 mls/hr 07/10/24 10:45 07/10/24 10:36 Potassium Chloride 20 Meq In Water 100ml IV 07/10/24 14:44 50 mls/hr Q2H MICHAEL Administration Magnesium Sulfate/Dextrose 100 mls @ 100 mls/hr 07/10/24 10:45 07/10/24 10:36 Magnesium 1 Gm / 100 Ml D5w IV 07/10/24 12:44 100 mls/hr Q1H MICHAEL Administration Discontinued Medications Generic Name Dose Route Start Last Admin Trade Name Maribel PRN Reason Stop Dose Admin Sodium Chloride 1,000 mls @ 999 mls/hr 07/10/24 09:39 07/10/24 09:59 Sodium Chloride 0.9% 1000 Ml IV 07/10/24 10:39 999 mls/hr .Q1H1M STA Administration Sodium Chloride Confirm 07/10/24 09:59 Sodium Chloride 0.9% 1000 Ml Administered 07/10/24 10:00 Dose 1,000 mls @ ud .ROUTE .K-MED ONE Lab/Rad Data: Laboratory Result Diagrams 07/10/24 09:55 07/10/24 09:55 Laboratory Results 07/10/24 07/10/24 07/10/24 Range/Units 10:19 09:59 09:55 WBC (3.98-10.04) x10^3/uL RBC (3.93-5.22) x10^6/uL Hgb (11.2-15.7) g/dL Hct (34.1-44.9) % MCV (79.4-94.8) fL MCH (25.6-32.2) pg MCHC (32.2-35.5) g/dL RDW (11.7-14.4) % Plt Count (182-369) x10^3/uL MPV (9.4-12.3) fL Sodium 135 (135-145) mmol/L Potassium 3.3 L (3.5-5.1) mmol/L Chloride 102 (98-107) mmol/L Carbon Dioxide 20 L (22-30) mmol/L Anion Gap 15.6 H (5-15) MEQ/L BUN 46 H (7-17) mg/dL Creatinine 1.33 H (0.52-1.04) mg/dL Estimated GFR 42.3 ML/MIN Glucose 183 H (74-106) mg/dL Lactic Acid 2.6 H (0.4-2.0) Calcium 9.4 (8.4-10.2) mg/dL Magnesium 1.8 (1.6-2.3) mg/dL Total Bilirubin 1.40 H (0.2-1.3) mg/dL AST 36 (14-36) U/L ALT 22 (0-35) U/L Alkaline Phosphatase 73 (38-126) U/L Serum Total Protein 8.0 (6.3-8.2) g/dL Albumin 4.5 (3.5-5.0) g/dL Influenza Type A Ag (NEGATIVE) Influenza Type B Ag (NEGATIVE) RSV (PCR) (NEGATIVE) SARS-CoV-2 (PCR) (NEGATIVE) 07/10/24 07/10/24 Range/Units 09:55 09:52 WBC 30.4 H* (3.98-10.04) x10^3/uL RBC 4.88 (3.93-5.22) x10^6/uL Hgb 14.3 (11.2-15.7) g/dL Hct 44.0 (34.1-44.9) % MCV 90.2 (79.4-94.8) fL MCH 29.3 (25.6-32.2) pg MCHC 32.5 (32.2-35.5) g/dL RDW 15.1 H (11.7-14.4) % Plt Count 434 H (182-369) x10^3/uL MPV 10.4 (9.4-12.3) fL Sodium (135-145) mmol/L Potassium (3.5-5.1) mmol/L Chloride (98-107) mmol/L Carbon Dioxide (22-30) mmol/L Anion Gap (5-15) MEQ/L BUN (7-17) mg/dL Creatinine (0.52-1.04) mg/dL Estimated GFR ML/MIN Glucose (74-106) mg/dL Lactic Acid (0.4-2.0) Calcium (8.4-10.2) mg/dL Magnesium (1.6-2.3) mg/dL Total Bilirubin (0.2-1.3) mg/dL AST (14-36) U/L ALT (0-35) U/L Alkaline Phosphatase (38-126) U/L Serum Total Protein (6.3-8.2) g/dL Albumin (3.5-5.0) g/dL Influenza Type A Ag NEGATIVE (NEGATIVE) Influenza Type B Ag NEGATIVE (NEGATIVE) RSV (PCR) NEGATIVE (NEGATIVE) SARS-CoV-2 (PCR) NEGATIVE (NEGATIVE) - Progress Progress: improved Progress Note: 74-year-old female presents to our ED for evaluation of generalized weakness, ni ght sweats and nausea and vomiting. Physical exam reveals dry oral mucous membranes. Patient has a leukocytosis of 30.4. The origin of the leukocytosis is unclear however urinalysis is pending. Patient currently receiving IV fluids but has not urinated. Patient advised that her urine output has gone significantly down over the past couple days and she has been experiencing nausea and vomiting. Chest x-ray negative for acute pathology. Electrolytes are abnormal. Patient has a hypokalemia of 3.2. Patient currently receiving potassium and magnesium replacement. Lactic acidosis of 2.6. This should be successfully addressed with IV fluid/hydration. Patient will require hospitalization for further evaluation and treatment of nausea vomiting weakness electrolyte abnormalities and acidosis. Plan of care discussed with patient. She agrees to admission at [facility] for further evaluation and treatment. Case discussed with hospitalist Dr. Garcia who accepts admission to observation at 10:50 AM. Portions of this note were created with voice recognition technology. There may be grammatical, spelling, punctuation or sound alike errors Complexity of problem addressed is moderate acute complicated. No critical care time. Complexity of data reviewed and analyzed is extensive. Test ordered test reviewed results analyzed and correlated clinically with history and physical exam. Management discussed with hospitalist who excepts admission to observ ation at 10:50 AM. Risk of complication at or risk of morbidity/mortality of patient management is high. Patient requires hospitalization for further evaluation and treatment. Vital stable. Time spent to admit patient approximately 15 minutes. Plan of care established for shared decision making. No social determinants of health present to impede follow-up. Portions of this note were created with voice recognition technology. There may be grammatical, spelling, punctuation or sound alike errors 07/10/24 10:53 Counseled pt/family regarding: lab results, diagnosis, rad results - Departure Departure Disposition: Observation Clinical Impression: Dehydration, Acute renal injury, Nausea and vomiting, Leukocytosis, Tachycardia, Lactic acidosis, Hypokalemia, Generalized weakness Condition: Stable Critical Care Time: No Referrals: JOSE OVERTON [Primary Care Provider] - Follow up/PCP as directed
[2024-07-10] MEDS: Sodium Chloride 0.9% 1000 ML 1,000 ML IV STA (09:59)
[2024-07-10] MEDS ORDERED: Sodium Chloride 0.9% 1000 ML 1,000 ML ONE (09:59)
--- NOTE | 2024-07-10 10:04 | XRAY ---
Indication: Tachycardia. Comparison: April 25, 2023 Portable chest inflated again with minimal bibasilar subsegmental atelectasis/scarring. No focal infiltrate, consolidation, or large effusion. Heart remains enlarged again with small mediastinal/hilar calcified nodes and recent CT proven hiatal hernia. Bony thorax intact again with osteopenia, degenerative changes, and L1 vertebroplasty. Impression: Continued nonacute chest with chronic features.
[2024-07-10 10:12] LABS: Hemoglobin 14.3 g/dL (11.2-15.7); Mean Cell Volume 90.2 fL (79.4-94.8); Mean Corpuscular Hemoglobin 29.3 pg (25.6-32.2); Mean Corpuscular Hgb Concent. 32.5 g/dL (32.2-35.5); Mean Platelet Volume 10.4 fL (9.4-12.3); Platelet Count 434 x10^3/uL (182-369); Red Blood Count 4.88 x10^6/uL (3.93-5.22); Red Cell Distribution Width 15.1 % (11.7-14.4)
[2024-07-10 10:15] LABS: White Blood Count 30.4 x10^3/uL (3.98-10.04)
[2024-07-10 10:24] LABS: ALBUMIN 4.5 g/dL (3.5-5.0); ANION GAP 15.6 MEQ/L (5-15); BILIRUBIN,TOTAL 1.4 mg/dL (0.2-1.3); Calcium 9.4 mg/dL (8.4-10.2); Creatinine 1 1.33 mg/dL (0.52-1.04); EST GLOMERULAR FILTRATION RATE 42.3 ML/MIN; Potassium 3.3 mmol/L (3.5-5.1)
[2024-07-10] MEDS ORDERED: Magnesium 1 Gm / 100 Ml D5W*** 100 ML IV ONE (10:35)
[2024-07-10] MEDS: POTASSIUM CHLORIDE 20 mEq IN WATER 100ML 20 MEQ/100 ML BAG IV SCH (10:36)
[2024-07-10] MEDS: Magnesium 1 Gm / 100 Ml D5W*** 100 ML IV SCH (10:36)
[2024-07-10 10:47] LABS: INFLUENZA A NEGATIVE (NEGATIVE); INFLUENZA B NEGATIVE (NEGATIVE); RESPIRATORY SYNCTIAL VIRUS NEGATIVE (NEGATIVE); SARS-CoV-2 Xpert Express NEGATIVE (NEGATIVE)
[2024-07-10] MEDS ORDERED: Compazine 10 MG/2 ML IM PRN (11:46)
--- NOTE | 2024-07-10 11:47 | PCM.HP ---
History of Present Illness - Chief Complaint Chief Complaint: Generalized weakness, dehydration, leukocytosis Date: 07/10/24 History of Present Illness: Ms. Aragon is a 74-year-old female with PMHX of hyperlipidemia, HTN. OA, GERD, diverticulitis, GERD, stroke and TIA (on eliquis). She presented to our ED today for evaluation of generalized weakness, nausea, vomiting, and sweating. Patient states her symptoms started 2 days ago. Patient presented to our ED on 07/08, patient states her viral panel was negative, and was discharged home on Zofran. Patient states her symptoms have gotten progressively worse. She has been unable to tolerate p.o. No active pain at this time. She is is having dysuria and foul smelling urine. She admits to wearing depends at night as she cannot get to the bathroom fast enough. UA pending. Will continue antibiotics for UTI as likely source of infection. She denies any further concerns at this time. - Review of Systems Constitutional: Weakness, No Fever, No Chills Eyes: No Symptoms Ears, Nose, & Throat: No Symptoms Respiratory: No Cough, No Short Of Breath Cardiac: No Chest Pain, No Edema, No Syncope Abdominal/Gastrointestinal: No Abdominal Pain, No Nausea, No Vomiting, No Diarrhea Genitourinary Symptoms: Dysuria Musculoskeletal: No Back Pain, No Neck Pain Skin: No Rash Neurological: No Dizziness, No Focal Weakness, No Sensory Changes Psychological: No Symptoms Endocrine: No Symptoms Hematologic/Lymphatic: No Symptoms Immunological/Allergic: No Symptoms Medications & Allergies Home Medications: Home Medication List Budesonide/Formoterol Fumarate [Symbicort 80-4.5 Mcg Inhaler] 2 puffs IH DAILY 09/21/16 [History Confirmed 07/10/24] Escitalopram Oxalate [Lexapro] 20 mg PO DAILY 09/21/16 [History Confirmed 07/10/24] Fenofibrate Nanocrystallized [Fenofibrate] 150 mg PO DAILY 09/21/16 [History Confirmed 07/10/24] Losartan Potassium 25 mg PO DAILY 09/21/16 [History Confirmed 07/08/24] PANTOPRAZOLE 40 mg Tablet [Protonix 40MG Tablet] 40 mg PO DAILY PRN PRN 09/21/16 [History Confirmed 07/10/24] Apixaban [Eliquis 2.5 mg Tablet] 2.5 mg PO BID 04/25/23 [History Confirmed 07/10/24] Ondansetron ODT 4 MG [Zofran Odt 4 mg] 4 mg PO Q6H PRN PRN #10 tablet 07/08/24 [Rx Confirmed 07/10/24] Allergies/Adverse Reactions: Allergies Allergy/AdvReac Type Severity Reaction Status Date / Time ibuprofen AdvReac Verified 05/10/24 22:00 - Past Medical History Past Medical History: Yes Neurological History: No Pertinent History, Stroke, TIA ENT History: Cataracts Cardiac History: Hypertension Respiratory History: Asthma Endocrine Medical History: No Pertinent History Musculoskelatal History: Arthritis, Osteoporosis, Other GI Medical History: Diverticulitis, GERD, Hernia, Polyps History: No Pertinent History Pyscho-Social History: No Pertinent History Reproductive Disorders: No Pertinent History Comment: sarcoidosis, osteoporosis, TIA-JUN 2021 - Past Surgical History Past Surgical History: Yes Neuro Surgical History: No Pertinent History Cardiac History: No Pertinent History Respiratory Surgery: No Pertinent History GI Surgical History: Bowel Surgery, Cholecystectomy, Hernia Repair Genitourinary Surgical Hx: No Pertinent History Musculskeletal Surgical Hx: Other Female Surgical History: Hysterectomy, Tubal Ligation Other Surgical History: esophageal reduction, kyphoplasty - Social History Smoking Status: Never smoker Exposure to second hand smoke: No Alcohol: None Drug Use: none - Social Determinants of Health Will the patient participate in the screening: Declined to provide Do you worry about a steady place to live?: No In the past 12 months,have you had to go without utilities?: No Have you or anyone in your house had to go without enough: No Transportation Issues: No Has anyone in your support network made you feel unsafe?: No - Physical Exam Vital Signs: Vital Signs - 24 hr Temp Pulse Resp BP BP Pulse Ox 07/10/24 11:00 105 H 18 118/68 95 07/10/24 10:58 97 07/10/24 10:47 118 H 19 95 07/10/24 10:31 112 H 16 112/73 96 07/10/24 10:15 122 H 17 82/61 94 L 07/10/24 10:10 116 H 29 H 94 L 07/10/24 10:07 146 H 16 07/10/24 09:44 94 L 07/10/24 09:33 132 H 18 95 07/10/24 09:32 98.6 F 75 20 97 General Appearance: no apparent distress, alert Neurologic Exam: alert, oriented x 3, cooperative, normal mood/affect, nml cerebellar function, nml station & gait, sensation nml, motor weakness, No motor deficits Eye Exam: PERRL/EOMI, eyes nml inspection Ears, Nose, Throat Exam: normal ENT inspection, TMs normal, pharynx normal, moist mucous membranes Neck Exam: normal inspection, non-tender, supple, full range of motion Respiratory Exam: normal breath sounds, lungs clear, No respiratory distress Cardiovascular Exam: regular rate/rhythm, normal heart sounds, normal peripheral pulses Gastrointestinal/Abdomen Exam: soft, normal bowel sounds, No tenderness, No mass Back Exam: normal inspection, normal range of motion, No CVA tenderness, No vertebral tenderness Extremity Exam: normal inspection, normal range of motion, pelvis stable Skin Exam: normal color, warm, dry, No rash Lymphatic Exam: No adenopathy Results - Labs Lab/Micro Results: Lab Results-Last 24 Hours 07/10/24 07/10/24 07/10/24 Range/Units 09:52 09:55 09:55 WBC 30.4 H* (3.98-10.04) x10^3/uL RBC 4.88 (3.93-5.22) x10^6/uL Hgb 14.3 (11.2-15.7) g/dL Hct 44.0 (34.1-44.9) % MCV 90.2 (79.4-94.8) fL MCH 29.3 (25.6-32.2) pg MCHC 32.5 (32.2-35.5) g/dL RDW 15.1 H (11.7-14.4) % Plt Count 434 H (182-369) x10^3/uL MPV 10.4 (9.4-12.3) fL Sodium 135 (135-145) mmol/L Potassium 3.3 L (3.5-5.1) mmol/L Chloride 102 (98-107) mmol/L Carbon Dioxide 20 L (22-30) mmol/L Anion Gap 15.6 H (5-15) MEQ/L BUN 46 H (7-17) mg/dL Creatinine 1.33 H (0.52-1.04) mg/dL Estimated GFR 42.3 ML/MIN Glucose 183 H (74-106) mg/dL Lactic Acid (0.4-2.0) Calcium 9.4 (8.4-10.2) mg/dL Magnesium (1.6-2.3) mg/dL Total Bilirubin 1.40 H (0.2-1.3) mg/dL AST 36 (14-36) U/L ALT 22 (0-35) U/L Alkaline Phosphatase 73 (38-126) U/L Serum Total Protein 8.0 (6.3-8.2) g/dL Albumin 4.5 (3.5-5.0) g/dL Influenza Type A Ag NEGATIVE (NEGATIVE) Influenza Type B Ag NEGATIVE (NEGATIVE) RSV (PCR) NEGATIVE (NEGATIVE) SARS-CoV-2 (PCR) NEGATIVE (NEGATIVE) 07/10/24 07/10/24 Range/Units 09:59 10:19 WBC (3.98-10.04) x10^3/uL RBC (3.93-5.22) x10^6/uL Hgb (11.2-15.7) g/dL Hct (34.1-44.9) % MCV (79.4-94.8) fL MCH (25.6-32.2) pg MCHC (32.2-35.5) g/dL RDW (11.7-14.4) % Plt Count (182-369) x10^3/uL MPV (9.4-12.3) fL Sodium (135-145) mmol/L Potassium (3.5-5.1) mmol/L Chloride (98-107) mmol/L Carbon Dioxide (22-30) mmol/L Anion Gap (5-15) MEQ/L BUN (7-17) mg/dL Creatinine (0.52-1.04) mg/dL Estimated GFR ML/MIN Glucose (74-106) mg/dL Lactic Acid 2.6 H (0.4-2.0) Calcium (8.4-10.2) mg/dL Magnesium 1.8 (1.6-2.3) mg/dL Total Bilirubin (0.2-1.3) mg/dL AST (14-36) U/L ALT (0-35) U/L Alkaline Phosphatase (38-126) U/L Serum Total Protein (6.3-8.2) g/dL Albumin (3.5-5.0) g/dL Influenza Type A Ag (NEGATIVE) Influenza Type B Ag (NEGATIVE) RSV (PCR) (NEGATIVE) SARS-CoV-2 (PCR) (NEGATIVE) - Radiology Impressions Radiology Exams & Impressions: Radiology Procedures Category Date Time Status CHEST 1 VIEW (PORTABLE) Stat Exams 07/10/24 09:39 Completed Assessment/Plan (1) Leukocytosis Current Visit: Yes Status: Acute Assessment & Plan: - CBC, CMP reviewed - CXR negatie - UA pending - WBC 30.4 Code(s): D72.829 - ELEVATED WHITE BLOOD CELL COUNT, UNSPECIFIED (2) UTI (urinary tract infection) Current Visit: Yes Status: Acute Assessment & Plan: - Likely source of infection - Wears depends - Foul smelling urine and dysuria - UA pending - Old UA results reviewed - Ceftriaxone IV Code(s): N39.0 - URINARY TRACT INFECTION, SITE NOT SPECIFIED (3) Nausea and vomiting Current Visit: Yes Status: Acute Assessment & Plan: - Compazine Q6 PRN - IVF Code(s): R11.2 - NAUSEA WITH VOMITING, UNSPECIFIED (4) Metabolic acidosis Current Visit: Yes Status: Acute Assessment & Plan: - Co2 20 - IVF - 2:2 N/V Code(s): E87.20 - ACIDOSIS, UNSPECIFIED (5) Thrombocytosis Current Visit: Yes Status: Acute Assessment & Plan: - PLT 434- trend (6) Acute renal injury Current Visit: Yes Status: Acute Assessment & Plan: - Creat 1.33- baseline 0.61 - IVF Code(s): N17.9 - ACUTE KIDNEY FAILURE, UNSPECIFIED (7) Dehydration Current Visit: Yes Status: Acute Assessment & Plan: - IVF - labs reviewed - anion gap 15.6 Code(s): E86.0 - DEHYDRATION (8) Hypokalemia Current Visit: Yes Status: Acute Assessment & Plan: - K+ 3.3- replaced in ER- recheck 2 hours after infusions complete. Code(s): E87.6 - HYPOKALEMIA (9) Obesity (BMI 30-39.9) Current Visit: Yes Status: Acute Assessment & Plan: - advised diet and exercise control VTE: Eliquis PPI: Protonix Next of KIN: Freda Donna [phone] D/C plan: 1-2 days Code status: Full Code(s): E66.9 - OBESITY, UNSPECIFIED
[2024-07-10 11:55] LABS: BAND 9 % (0.0-2.0); Lymphocytes 9 % (19.3-51.7); Monocyte 5 % (4.7-12.5); Neutrophils 77 % (34.0-71.1); Platelet Estimate NORMAL (NORMAL); Total Cells Counted 100
[2024-07-10] MEDS: Sodium Chloride 0.9% 1000 ML 1,000 ML IV SCH (12:22)
[2024-07-10] MEDS ORDERED: NON-FORMULARY ITEM (Albuterol Sulfate 8.5 GM Hfa.Aer.Ad) IN PRN (12:30)
[2024-07-10] MEDS: ROCEPHIN 1 GM / 100 ML NaCl 1 GM/100 ML IVPB IV SCH (12:56)
[2024-07-10] MEDS: Lexapro PO SCH (12:58)
[2024-07-10] MEDS: Tricor 145 MG PO SCH (12:58)
[2024-07-10] MEDS: Toprol-Xl 25MG Tablets PO SCH (12:58)
[2024-07-10] MEDS: Singulair 10 MG PO SCH (12:59)
[2024-07-10] MEDS: Advair Hfa 115/21 Common canister IH SCH (13:37)
[2024-07-10] MEDS: POTASSIUM CHLORIDE 20 mEq IN WATER 100ML 20 MEQ/100 ML BAG IV ONE (13:43)
[2024-07-10 14:01] LABS: Appearance Cloudy (Clear); Bacteria Many /HPF (None Seen); Bilirubin Small (Negative); Blood Large (Negative); Epithelial Cells Rare /HPF (None Seen); Glucose, Urine Negative (Negative); Ketones Negative (Negative); Leukocyte Esterase Large (Negative); Nitrite Negative (Negative); Protein,Urine Dip Trace (Negative); RBC 51-100 /HPF (0-5); Specific Gravity 1.025 (1.005-1.030); WBC 51-100 /HPF (0-5)
[2024-07-10] MEDS: NORCO 5/325 MG PO SCH (18:11)
[2024-07-10] MEDS: Compazine 10 MG/2 ML IV PRN (18:33)
[2024-07-10] MEDS: VENTOLIN COMMON CANISTER IH PRN (18:53)
[2024-07-10] MEDS ORDERED: NON-FORMULARY ITEM (Fluticasone Propion/Salmeterol [Advair 100-50 Diskus] 1 EACH Blst.W.De IH SCH (22:00)
[2024-07-10] MEDS: ELIQUIS 2.5 MG TABLET PO SCH (22:39)
[2024-07-11 04:42] LABS: Hematocrit 37.4 % (34.1-44.9); Hemoglobin 12.3 g/dL (11.2-15.7); Mean Cell Volume 90.8 fL (79.4-94.8); Mean Corpuscular Hemoglobin 29.9 pg (25.6-32.2); Mean Corpuscular Hgb Concent. 32.9 g/dL (32.2-35.5); Mean Platelet Volume 10.3 fL (9.4-12.3); Platelet Count 371 x10^3/uL (182-369); Red Blood Count 4.12 x10^6/uL (3.93-5.22); White Blood Count 14.5 x10^3/uL (3.98-10.04)
[2024-07-11 05:02] LABS: ALBUMIN 3.9 g/dL (3.5-5.0); ANION GAP 11.5 MEQ/L (5-15); BILIRUBIN,TOTAL 0.7 mg/dL (0.2-1.3); Calcium 8.6 mg/dL (8.4-10.2); Creatinine 1 0.69 mg/dL (0.52-1.04); EST GLOMERULAR FILTRATION RATE 91.6 ML/MIN; MAGNESIUM 2.1 mg/dL (1.6-2.3); Potassium 3.8 mmol/L (3.5-5.1)
[2024-07-11] MEDS: Spiriva 18 Mcg/Cap Inhaler IH SCH (07:26)
[2024-07-11] MEDS: THERAGRAN MULTIVITAMIN PO SCH (09:15)
[2024-07-11] MEDS ORDERED: NON-FORMULARY ITEM (Multivitamin [Multi-Vitamin Daily] 1 EACH Tablet) PO SCH (10:00)
[2024-07-11] MEDS: Protonix 40MG Tablet PO PRN (10:09)
--- NOTE | 2024-07-11 12:10 | PCM.NOTE ---
Date and Time: 07/11/24 1203 Subjective Assessment: 07/10/24 Ms. Aragon is a 74-year-old female with PMHX of hyperlipidemia, HTN. OA, GERD, diverticulitis, GERD, stroke and TIA (on eliquis). She presented to our ED today for evaluation of generalized weakness, nausea, vomiting, and sweating. Patient states her symptoms started 2 days ago. Patient presented to our ED on 07/08, patient states her viral panel was negative, and was discharged home on Zofran. Patient states her symptoms have gotten progressively worse. She has been unable to tolerate p.o. No active pain at this time. She is is having dysuria and foul smelling urine. She admits to wearing depends at night as she cannot get to the bathroom fast enough. UA pending. Will continue antibiotics for UTI as likely source of infection. She denies any further concerns at this time. 07/11/24 Pt resting in bed. She states she still does not feel well today. WBC improved. Urine culture and blood cultures x2 pending. She did have a temp of 99 last night. ELKE resolved. Continue IV antibiotic. She denies CP, SOB, abd. pain, N/V/D. - Review of Systems Constitutional: Fatigue, No Fever, No Chills Eyes: No Symptoms Ears, Nose, & Throat: No Symptoms Respiratory: No Cough, No Short Of Breath Cardiac: No Chest Pain, No Edema, No Syncope Abdominal/Gastrointestinal: No Abdominal Pain, No Nausea, No Vomiting, No Diarrhea Genitourinary Symptoms: No Dysuria Musculoskeletal: No Back Pain, No Neck Pain Skin: No Rash Neurological: No Dizziness, No Focal Weakness, No Sensory Changes Psychological: No Symptoms Endocrine: No Symptoms Hematologic/Lymphatic: No Symptoms Immunological/Allergic: No Symptoms Objective Exam General Appearance: no apparent distress, alert, obese Neurologic Exam: alert, oriented x 3, cooperative, normal mood/affect, nml cerebellar function, sensation nml, No motor deficits Skin Exam: normal color, warm, dry Eye Exam: PERRL, EOMI, eyes nml inspection Ears, Nose, Throat Exam: normal ENT inspection, pharynx normal, moist mucous membranes Neck Exam: normal inspection, non-tender, supple, full range of motion Respiratory Exam: normal breath sounds, lungs clear, No respiratory distress Cardiovascular Exam: regular rate/rhythm, normal heart sounds Gastrointestinal/Abdomen Exam: soft, No tenderness, No mass Extremity Exam: normal inspection, normal range of motion Back Exam: normal inspection, normal range of motion, No CVA tenderness, No vertebral tenderness Pelvic Exam: deferred Rectal Exam: deferred Objective Data Vital Signs: Vital Signs - 24 hr Temp Pulse Resp BP Pulse Ox 07/11/24 11:46 97.6 F 75 20 137/63 94 L 07/11/24 08:00 97.9 F 79 20 153/67 91 L 07/11/24 07:57 80 20 94 L 07/11/24 04:00 98.6 F 79 20 149/69 95 07/10/24 23:18 98.2 F 80 24 116/81 94 L 07/10/24 19:16 99.2 F 78 21 114/50 95 07/10/24 19:13 78 20 95 07/10/24 16:00 97.5 F 79 18 103/54 94 L 07/10/24 13:40 81 18 94 L Pain Assessment - Last Documented Pain Intensity 5 Pain Scale Used 0-10 Pain Scale Intake and Output: Intake & Output 07/09/24 07/10/24 07/11/24 07/12/24 11:59 11:59 11:59 11:59 Intake Total 880 Output Total 1000 Balance -120 Weight 85.6 kg Lab Results: Lab Results-Last 24 Hours 07/10/24 07/10/24 07/10/24 Range/Units 09:30 12:10 13:31 WBC (3.98-10.04) x10^3/uL RBC (3.93-5.22) x10^6/uL Hgb (11.2-15.7) g/dL Hct (34.1-44.9) % MCV (79.4-94.8) fL MCH (25.6-32.2) pg MCHC (32.2-35.5) g/dL RDW (11.7-14.4) % Plt Count (182-369) x10^3/uL MPV (9.4-12.3) fL Sodium (135-145) mmol/L Potassium (3.5-5.1) mmol/L Chloride (98-107) mmol/L Carbon Dioxide (22-30) mmol/L Anion Gap (5-15) MEQ/L BUN (7-17) mg/dL Creatinine (0.52-1.04) mg/dL Estimated GFR ML/MIN Glucose (74-106) mg/dL Hemoglobin A1c 5.34 (4.5-6.0) % Lactic Acid 2.3 H (0.4-2.0) Calcium (8.4-10.2) mg/dL Magnesium (1.6-2.3) mg/dL Total Bilirubin (0.2-1.3) mg/dL AST (14-36) U/L ALT (0-35) U/L Alkaline Phosphatase (38-126) U/L Serum Total Protein (6.3-8.2) g/dL Albumin (3.5-5.0) g/dL Urine Color Dark Yellow A (Yellow) Urine Appearance Cloudy A (Clear) Urine pH 5.0 (4.6-8.0) Ur Specific [place] 1.025 (1.005-1.030) Urine Protein Trace A (Negative) Urine Glucose (UA) Negative (Negative) mg/dL Urine Ketones Negative (Negative) Urine Blood Large A (Negative) Urine Nitrite Negative (Negative) Urine Bilirubin Small A (Negative) Urine Urobilinogen 1.0 A (0.2) mg/dL Ur Leukocyte Esterase Large A (Negative) U Hyaline Cast (Auto) 11-20 (0-2) /LPF Urine Microscopic RBC 51-100 A (0-5) /HPF Urine Microscopic WBC 51-100 A (0-5) /HPF Ur Epithelial Cells Rare (None Seen) /HPF Urine Bacteria Many A (None Seen) /HPF Urine Culture Reflexed YES (NO) 07/10/24 07/11/24 07/11/24 Range/Units 18:25 04:25 04:25 WBC 14.5 H (3.98-10.04) x10^3/uL RBC 4.12 (3.93-5.22) x10^6/uL Hgb 12.3 (11.2-15.7) g/dL Hct 37.4 (34.1-44.9) % MCV 90.8 (79.4-94.8) fL MCH 29.9 (25.6-32.2) pg MCHC 32.9 (32.2-35.5) g/dL RDW 15.0 H (11.7-14.4) % Plt Count 371 H (182-369) x10^3/uL MPV 10.3 (9.4-12.3) fL Sodium 137 (135-145) mmol/L Potassium 3.5 3.8 (3.5-5.1) mmol/L Chloride 106 (98-107) mmol/L Carbon Dioxide 23 (22-30) mmol/L Anion Gap 11.5 (5-15) MEQ/L BUN 31 H (7-17) mg/dL Creatinine 0.69 (0.52-1.04) mg/dL Estimated GFR 91.6 ML/MIN Glucose 106 (74-106) mg/dL Hemoglobin A1c (4.5-6.0) % Lactic Acid (0.4-2.0) Calcium 8.6 (8.4-10.2) mg/dL Magnesium 2.1 (1.6-2.3) mg/dL Total Bilirubin 0.70 (0.2-1.3) mg/dL AST 29 (14-36) U/L ALT 18 (0-35) U/L Alkaline Phosphatase 63 (38-126) U/L Serum Total Protein 7.0 (6.3-8.2) g/dL Albumin 3.9 (3.5-5.0) g/dL Urine Color (Yellow) Urine Appearance (Clear) Urine pH (4.6-8.0) Ur Specific [place] (1.005-1.030) Urine Protein (Negative) Urine Glucose (UA) (Negative) mg/dL Urine Ketones (Negative) Urine Blood (Negative) Urine Nitrite (Negative) Urine Bilirubin (Negative) Urine Urobilinogen (0.2) mg/dL Ur Leukocyte Esterase (Negative) U Hyaline Cast (Auto) (0-2) /LPF Urine Microscopic RBC (0-5) /HPF Urine Microscopic WBC (0-5) /HPF Ur Epithelial Cells (None Seen) /HPF Urine Bacteria (None Seen) /HPF Urine Culture Reflexed (NO) 07/11/24 Range/Units 07:21 WBC (3.98-10.04) x10^3/uL RBC (3.93-5.22) x10^6/uL Hgb (11.2-15.7) g/dL Hct (34.1-44.9) % MCV (79.4-94.8) fL MCH (25.6-32.2) pg MCHC (32.2-35.5) g/dL RDW (11.7-14.4) % Plt Count (182-369) x10^3/uL MPV (9.4-12.3) fL Sodium (135-145) mmol/L Potassium (3.5-5.1) mmol/L Chloride (98-107) mmol/L Carbon Dioxide (22-30) mmol/L Anion Gap (5-15) MEQ/L BUN (7-17) mg/dL Creatinine (0.52-1.04) mg/dL Estimated GFR ML/MIN Glucose (74-106) mg/dL Hemoglobin A1c (4.5-6.0) % Lactic Acid 1.0 (0.4-2.0) Calcium (8.4-10.2) mg/dL Magnesium (1.6-2.3) mg/dL Total Bilirubin (0.2-1.3) mg/dL AST (14-36) U/L ALT (0-35) U/L Alkaline Phosphatase (38-126) U/L Serum Total Protein (6.3-8.2) g/dL Albumin (3.5-5.0) g/dL Urine Color (Yellow) Urine Appearance (Clear) Urine pH (4.6-8.0) Ur Specific [place] (1.005-1.030) Urine Protein (Negative) Urine Glucose (UA) (Negative) mg/dL Urine Ketones (Negative) Urine Blood (Negative) Urine Nitrite (Negative) Urine Bilirubin (Negative) Urine Urobilinogen (0.2) mg/dL Ur Leukocyte Esterase (Negative) U Hyaline Cast (Auto) (0-2) /LPF Urine Microscopic RBC (0-5) /HPF Urine Microscopic WBC (0-5) /HPF Ur Epithelial Cells (None Seen) /HPF Urine Bacteria (None Seen) /HPF Urine Culture Reflexed (NO) Radiology Exams: Radiology Procedures Category Date Time Status CHEST 1 VIEW (PORTABLE) Stat Exams 07/10/24 09:39 Completed Multi-Disciplinary Progress Notes: Multi-Disciplinary Progress Notes 07/10/24 15:38 Physical Therapy Note by Danny (L [id number]),Lisa PT ATTEMPTED EVALUATION THIS DATE. HOWEVER, PATIENT DECLINED EVALUAITON AND STATES SHE WANTS TO REST TODAY D/T NOT FEELING WELL. PT WILL ATTEMPT EVALUATION TOMORROW. Initialized on 07/10/24 15:38 - END OF NOTE Assessment/Plan (1) Leukocytosis Current Visit: Yes Status: Acute Code(s): D72.829 - ELEVATED WHITE BLOOD CELL COUNT, UNSPECIFIED (2) UTI (urinary tract infection) Current Visit: Yes Status: Acute Code(s): N39.0 - URINARY TRACT INFECTION, SITE NOT SPECIFIED (3) Nausea and vomiting Current Visit: Yes Status: Acute Code(s): R11.2 - NAUSEA WITH VOMITING, UNSPECIFIED (4) Metabolic acidosis Current Visit: Yes Status: Acute Code(s): E87.20 - ACIDOSIS, UNSPECIFIED (5) Thrombocytosis Current Visit: Yes Status: Acute (6) Acute renal injury Current Visit: Yes Status: Acute Code(s): N17.9 - ACUTE KIDNEY FAILURE, UNSPECIFIED (7) Dehydration Current Visit: Yes Status: Acute Code(s): E86.0 - DEHYDRATION (8) Hypokalemia Current Visit: Yes Status: Acute Code(s): E87.6 - HYPOKALEMIA (9) Obesity (BMI 30-39.9) Current Visit: Yes Status: Acute Assessment & Plan: 1) Leukocytosis Current Visit: Yes Status: Acute Assessment & Plan: - CBC, CMP reviewed - CXR negative - UA pending - WBC 30.4 2/ - WBC 14.5- improved - 2:2 UTI Code(s): D72.829 - ELEVATED WHITE BLOOD CELL COUNT, UNSPECIFIED (2) UTI (urinary tract infection) Current Visit: Yes Status: Acute Assessment & Plan: - Likely source of infection - Wears depends - Foul smelling urine and dysuria - UA reviwed - Old UA results reviewed - Ceftriaxone IV - UC and BC x2 pending - temp 99 last night - tylenol for fever PRN - PT for weakness 2:2 UTI Code(s): N39.0 - URINARY TRACT INFECTION, SITE NOT SPECIFIED (3) Nausea and vomiting Current Visit: Yes Status: Acute Assessment & Plan: - Compazine Q6 PRN - IVF Code(s): R11.2 - NAUSEA WITH VOMITING, UNSPECIFIED (4) Metabolic acidosis Current Visit: Yes Status: Acute Assessment & Plan: - Co2 20 - IVF - 2:2 N/V 07/11 - resolved Code(s): E87.20 - ACIDOSIS, UNSPECIFIED (5) Thrombocytosis Current Visit: Yes Status: Acute Assessment & Plan: - PLT 434- trend 07/11 - PLT 371 (6) Acute renal injury Current Visit: Yes Status: Acute Assessment & Plan: - Creat 1.33- baseline 0.61 - IVF Code(s): N17.9 - ACUTE KIDNEY FAILURE, UNSPECIFIED (7) Dehydration Current Visit: Yes Status: Acute Assessment & Plan: - IVF - labs reviewed - anion gap 15.6 07/11 - resolved Code(s): E86.0 - DEHYDRATION (8) Hypokalemia Current Visit: Yes Status: Acute Assessment & Plan: - K+ 3.3- replaced in ER- recheck 2 hours after infusions complete. 07/11 - resolved Code(s): E87.6 - HYPOKALEMIA (9) Obesity (BMI 30-39.9) Current Visit: Yes Status: Acute Assessment & Plan: - advised diet and exercise control VTE: Eliquis PPI: Protonix Next of KIN: Freda Thompson [phone] D/C plan: 1-2 days Code status: Full Code(s): E66.9 - OBESITY, UNSPECIFIED Code(s): E66.9 - OBESITY, UNSPECIFIED
[2024-07-11] MEDS: Pepcid 20 MG PO SCH (21:33)
[2024-07-12 05:01] LABS: Hematocrit 35.9 % (34.1-44.9); Hemoglobin 11.5 g/dL (11.2-15.7); Mean Cell Volume 89.8 fL (79.4-94.8); Mean Corpuscular Hemoglobin 28.8 pg (25.6-32.2); Mean Platelet Volume 10.4 fL (9.4-12.3); Platelet Count 364 x10^3/uL (182-369); Red Cell Distribution Width 15.1 % (11.7-14.4); White Blood Count 10.4 x10^3/uL (3.98-10.04)
--- NOTE | 2024-07-12 05:12 | PCM.NOTE ---
Date and Time: 07/12/24 0508 Subjective Assessment: Ms. Aragon is a 74-year-old female with PMHX of hyperlipidemia, HTN. OA, GERD, diverticulitis, GERD, stroke and TIA (on Eliquis) who presented to ED 07/10/24 with complaints of a two day history of progressive generalized weakness, nausea, vomiting, and sweating. Of note, patient was seen in ED on 07/08/24 and discharged at that time on Zofran for symptom relief. Symptoms did not improve and patient reported back to ED for further evaluation. CXR performed with no acute findings. Initial lab findings with leukocytosis with WBC at 30.4, GAP/lactic/metabolic acidosis, and ELKE. UA suspicious for UTI. Respiratory viral panel negative. IP treatment with Ceftriaxone. ELKE has resolved. WBC is now down-trending. Blood and urine cultures are pending. Objective Data Vital Signs: Vital Signs - 24 hr Temp Pulse Resp BP Pulse Ox 07/12/24 04:00 98.6 F 89 28 H 162/74 94 L 07/11/24 23:41 97.4 F 88 28 H 173/77 94 L 07/11/24 20:00 98.4 F 82 21 185/77 95 07/11/24 18:50 81 20 94 L 07/11/24 16:37 82 20 92 L 07/11/24 16:00 99.3 F 80 20 196/77 93 L 07/11/24 11:46 97.6 F 75 20 137/63 94 L 07/11/24 08:00 97.9 F 79 20 153/67 91 L 07/11/24 07:57 80 20 94 L Pain Assessment - Last Documented Pain Intensity 3 Pain Scale Used 0-10 Pain Scale Intake and Output: Intake & Output 07/09/24 07/10/24 07/11/24 07/12/24 11:59 11:59 11:59 11:59 Intake Total 880 3200 Output Total 1000 1000 Balance -120 2200 Weight 85.6 kg Lab Results: Lab Results-Last 24 Hours 07/11/24 07/11/24 07/12/24 Range/Units 04:25 07:21 04:05 WBC 10.4 H (3.98-10.04) x10^3/uL RBC 4.00 (3.93-5.22) x10^6/uL Hgb 11.5 (11.2-15.7) g/dL Hct 35.9 (34.1-44.9) % MCV 89.8 (79.4-94.8) fL MCH 28.8 (25.6-32.2) pg MCHC 32.0 L (32.2-35.5) g/dL RDW 15.1 H (11.7-14.4) % Plt Count 364 (182-369) x10^3/uL MPV 10.4 (9.4-12.3) fL Sodium 137 (135-145) mmol/L Potassium 3.8 (3.5-5.1) mmol/L Chloride 106 (98-107) mmol/L Carbon Dioxide 23 (22-30) mmol/L Anion Gap 11.5 (5-15) MEQ/L BUN 31 H (7-17) mg/dL Creatinine 0.69 (0.52-1.04) mg/dL Estimated GFR 91.6 ML/MIN Glucose 106 (74-106) mg/dL Lactic Acid 1.0 (0.4-2.0) Calcium 8.6 (8.4-10.2) mg/dL Magnesium 2.1 (1.6-2.3) mg/dL Total Bilirubin 0.70 (0.2-1.3) mg/dL AST 29 (14-36) U/L ALT 18 (0-35) U/L Alkaline Phosphatase 63 (38-126) U/L Serum Total Protein 7.0 (6.3-8.2) g/dL Albumin 3.9 (3.5-5.0) g/dL Radiology Exams: Radiology Procedures Category Date Time Status CHEST 1 VIEW (PORTABLE) Stat Exams 07/10/24 09:39 Completed Assessment/Plan (1) UTI (urinary tract infection) Current Visit: Yes Status: Acute Assessment & Plan: - Likely source of infection - Wears depends - Foul smelling urine and dysuria - UA suspicious for infection - ucult currently with NGTD will continue with Ceftriaxone based on clinical presentation - BC x2 pending - tylenol for fever PRN - PT for weakness 2:2 UTI Code(s): N39.0 - URINARY TRACT INFECTION, SITE NOT SPECIFIED (2) Leukocytosis Current Visit: Yes Status: Acute Assessment & Plan: - CBC reviewed and trending down 10.5<14.5<30.4 - CXR reviewed with no acute findings - UA suspicious for infection - most likely cause - currently no growth on culture - will continue ceftriaxone -Blood cultures pending Code(s): D72.829 - ELEVATED WHITE BLOOD CELL COUNT, UNSPECIFIED (3) Acute renal injury Current Visit: Yes Status: Acute Assessment & Plan: -Most likely secondary to hypovolemia - baseline 0.61 -creat reviewed at 0.45 - at baseline - IVF -Avoid nephrotoxic agents -Monitor renal/lytes -resolved Code(s): N17.9 - ACUTE KIDNEY FAILURE, UNSPECIFIED (4) Dehydration Current Visit: Yes Status: Acute Assessment & Plan: -Secondary to GI losses - IVF - resolved Code(s): E86.0 - DEHYDRATION (5) Hypokalemia Current Visit: Yes Status: Acute Assessment & Plan: - Potassium reviewed at 4.2resolved --Monitor renal/lytes daily -tele Code(s): E87.6 - HYPOKALEMIA (6) Metabolic acidosis Current Visit: Yes Status: Acute Assessment & Plan: -2/2 to GI loss from N/V -co2 reviewed at 24 - resolved Code(s): E87.20 - ACIDOSIS, UNSPECIFIED (7) Obesity (BMI 30-39.9) Current Visit: Yes Status: Acute Assessment & Plan: - advised diet and exercise control Code(s): E66.9 - OBESITY, UNSPECIFIED (8) Thrombocytosis Current Visit: Yes Status: Acute Assessment & Plan: - Most likely reactive - trend -Plt reviewed at 364-resolved (9) Nausea vomiting and diarrhea Current Visit: No Status: Acute Assessment & Plan: - Compazine Q6 PRN - IVF VTE: Eliquis PPI: Protonix Next of KIN: Freda Donna [phone] D/C plan: 1-2 days Code status: Full Code(s): R11.2 - NAUSEA WITH VOMITING, UNSPECIFIED; R19.7 - DIARRHEA, UNSPECIFIED
[2024-07-12 05:47] LABS: ALBUMIN 3.6 g/dL (3.5-5.0); BILIRUBIN,TOTAL 0.6 mg/dL (0.2-1.3); Calcium 9.1 mg/dL (8.4-10.2); Creatinine 1 0.45 mg/dL (0.52-1.04); EST GLOMERULAR FILTRATION RATE 101.5 ML/MIN; Potassium 4.2 mmol/L (3.5-5.1); Total Protein 6.4 g/dL (6.3-8.2)
--- NOTE | 2024-07-12 10:42 | PCM.DS ---
Discharge Summary Date of Admission: 07/10/24 11:10 Date of Discharge: 07/12/24 Admitting Physician: ISIS FERRIS MD Primary Care Provider: JOSE OVERTON Allergies Allergies ibuprofen Adverse Reaction (Verified 05/10/24 22:00) patient bleeds Hospital Summary - Hospital Course Hospital Course: Ms. Aragon is a 74-year-old female with PMHX of hyperlipidemia, HTN. OA, GERD, diverticulitis, GERD, stroke and TIA (on Eliquis) who presented to ED 07/10/24 with complaints of a two day history of progressive generalized weakness, nausea, vomiting, and sweating. Of note, patient was seen in ED on 07/08/24 and discharged at that time on Zofran for symptom relief. Symptoms did not improve and patient reported back to ED for further evaluation. CXR performed with no acute findings. Initial lab findings with leukocytosis with WBC at 30.4, GAP/lactic/metabolic acidosis, and ELKE. UA suspicious for UTI. Respiratory viral panel negative. IP treatment with Ceftriaxone. ELKE has resolved. WBC is now at 10.4. Urine culture with mixed Sergo. Blood cultures with NGTD. Patient stable for discharge. Nausea, weakness, and vomiting have resolved. Will dismiss on cefdinir for UTI. Patient advised follow up with PCP. Physical therapy has evaluated patient with recommendations for OP PT. Patient has been set up for OP PT for strengthening. Discharge Note New Diagnosis: UTI New Medications: Cefdinir Follow Up: PCP Results pending: Blood culture Outpatient testing to order: Repeat UA I spent 35 minutes [id number] with the patient on the day of discharge performing discharge exam, discussing hospital stay and discharge instructions with patient and caregivers, preparation of discharge records, prescriptions & referral forms and addressing any questions/concerns the patient had as documented above. - Vitals & Intake/Output Vital Signs: Vital Signs Temperature 97.8 F 07/12/24 08:00 Pulse Rate 88 07/12/24 08:58 Respiratory Rate 20 07/12/24 08:58 Blood Pressure 132/68 07/12/24 08:00 O2 Sat by Pulse Oximetry 95 07/12/24 08:58 Intake & Output: Intake & Output 07/09/24 07/10/24 07/11/24 07/12/24 11:59 11:59 11:59 11:59 Intake Total 880 3320 Output Total 1000 2800 Balance -120 520 Weight 85.6 kg - Lab Result Diagrams: 07/12/24 04:05 07/12/24 04:05 Lab Results-Last 24 Hrs: Lab Results-Last 24 Hours 07/12/24 07/12/24 Range/Units 04:05 04:05 WBC 10.4 H (3.98-10.04) x10^3/uL RBC 4.00 (3.93-5.22) x10^6/uL Hgb 11.5 (11.2-15.7) g/dL Hct 35.9 (34.1-44.9) % MCV 89.8 (79.4-94.8) fL MCH 28.8 (25.6-32.2) pg MCHC 32.0 L (32.2-35.5) g/dL RDW 15.1 H (11.7-14.4) % Plt Count 364 (182-369) x10^3/uL MPV 10.4 (9.4-12.3) fL Sodium 139 (135-145) mmol/L Potassium 4.2 (3.5-5.1) mmol/L Chloride 105 (98-107) mmol/L Carbon Dioxide 24 (22-30) mmol/L Anion Gap 14.0 (5-15) MEQ/L BUN 13 (7-17) mg/dL Creatinine 0.45 L (0.52-1.04) mg/dL Estimated GFR 101.5 ML/MIN Glucose 101 (74-106) mg/dL Calcium 9.1 (8.4-10.2) mg/dL Total Bilirubin 0.60 (0.2-1.3) mg/dL AST 23 (14-36) U/L ALT 18 (0-35) U/L Alkaline Phosphatase 61 (38-126) U/L Serum Total Protein 6.4 (6.3-8.2) g/dL Albumin 3.6 (3.5-5.0) g/dL Micro Results-Entire Visit: Microbiology 07/10/24 13:31 Urine Culture - Final Clean Catch Midstream MIXED SERGO; 3 OR MORE TYPES. NO PREDOMINANT ORGANISM. NO FURTHER WORKUP. PLEASE RESUBMIT IF CLINICALLY INDICATED. 07/10/24 10:00 Blood Culture - Preliminary Blood 07/10/24 10:06 Blood Culture - Preliminary Blood - Radiology Exams Ordered Rad Exams-Entire Visit: Radiology Procedures Category Date Time Status CHEST 1 VIEW (PORTABLE) Stat Exams 07/10/24 09:39 Completed - Procedures and Test Procedures and Tests throughout Hospitalization: Therapy Orders & Screens 07/10/24 11:57 PT Eval & Treat ( Order) ONCE Reason for Eval:: weakness Diagnosis: Generalized weakness, dehydration, leukocytosis 07/10/24 13:30 Respiratory Therapy Assessment DAILY Comment: Diagnosis: Generalized weakness, dehydration, leukocytosis 07/10/24 19:32 BiPap/CPAP ROUTINE Comment: as per home settings Diagnosis: Generalized weakness, dehydration, leukocytosis Discharge Exam General Appearance: no apparent distress Neurologic Exam: alert, oriented x 3, cooperative Eye Exam: PERRL Ears, Nose, Throat Exam: normal ENT inspection Neck Exam: normal inspection Respiratory Exam: crackles/rales Cardiovascular Exam: regular rate/rhythm, normal heart sounds Gastrointestinal/Abdomen Exam: soft, normal bowel sounds Pelvic Exam: deferred Rectal Exam: deferred Back Exam: normal inspection Extremity Exam: normal inspection Skin Exam: normal color Final Diagnosis/Problem List - Final Discharge Diagnosis/Problem (1) UTI (urinary tract infection) Current Visit: Yes Status: Acute Code(s): N39.0 - URINARY TRACT INFECTION, SITE NOT SPECIFIED (2) Leukocytosis Current Visit: Yes Status: Acute Code(s): D72.829 - ELEVATED WHITE BLOOD CELL COUNT, UNSPECIFIED (3) Acute renal injury Current Visit: Yes Status: Acute Code(s): N17.9 - ACUTE KIDNEY FAILURE, UNSPECIFIED (4) Dehydration Current Visit: Yes Status: Acute Code(s): E86.0 - DEHYDRATION (5) Hypokalemia Current Visit: Yes Status: Acute Code(s): E87.6 - HYPOKALEMIA (6) Metabolic acidosis Current Visit: Yes Status: Acute Code(s): E87.20 - ACIDOSIS, UNSPECIFIED (7) Obesity (BMI 30-39.9) Current Visit: Yes Status: Acute Code(s): E66.9 - OBESITY, UNSPECIFIED (8) Thrombocytosis Current Visit: Yes Status: Acute (9) Nausea vomiting and diarrhea Current Visit: No Status: Acute Code(s): R11.2 - NAUSEA WITH VOMITING, UNSPECIFIED; R19.7 - DIARRHEA, UNSPECIFIED - Discharge Discharge Date: 07/12/24 Disposition: Home, Self-Care Condition: Stable Prescriptions: New Cefdinir 300 mg PO BID 3 Days #6 cap Continue Fenofibrate Nanocrystallized [Fenofibrate] 145 mg PO DAILY Escitalopram Oxalate [Lexapro] 20 mg PO DAILY PANTOPRAZOLE 40 mg Tablet [Protonix 40MG Tablet] 40 mg PO DAILY PRN PRN PRN Reason: Indigestion Apixaban [Eliquis 2.5 mg Tablet] 2.5 mg PO BID Ondansetron ODT 4 MG [Zofran Odt 4 mg] 4 mg PO Q6H PRN PRN #10 tablet PRN Reason: Nausea Montelukast Sodium 10 mg [Singulair 10 MG] 10 mg PO DAILY Hydrocodone/Acetaminophen [Hydrocodone-Acetamin 5-325 mg] 1 tab PO TID Albuterol Sulfate [Albuterol Sulfate Hfa] 90 mcg IN Q4H PRN PRN Reason: Shortness Of Breath/Wheezing Tiotropium [place] [Spiriva Handihaler] 1 cap IH DAILY Multivitamin [Multi-Vitamin Daily] 1 tab PO DAILY Metoprolol Succinate 25 mg Xl* [Toprol-Xl 25MG Tablets] 25 mg PO BID Fluticasone Propion/Salmeterol [Advair 100-50 Diskus] 1 puff IH BID Follow up with: JOSE OVERTON [Primary Care Provider] -
[2024-07-12 12:22] VITALS: BP 162/68; PULSE 81; RESP 17; TEMP 97.9; O2SAT 94
== END 2024-07-12 12:58 | disposition home or self-care (01) ==
LOC: ED 09:26 → MED SURG 11:10
PROVIDERS: ADMIT Internal Medicine; ATTEND Internal Medicine
DX: N39.0 Urinary tract infection, site not specified (principal); N17.9 Acute kidney failure, unspecified; D72.829 Elevated white blood cell count, unspecified; E86.0 Dehydration; E87.6 Hypokalemia; E87.20 Acidosis, unspecified; E66.9 Obesity, unspecified; D75.839 Thrombocytosis, unspecified; R11.2 Nausea with vomiting, unspecified; R19.7 Diarrhea, unspecified; I10 Essential (primary) hypertension; E78.5 Hyperlipidemia, unspecified; K21.9 Gastro-esophageal reflux disease without esophagitis; Z79.899 Other long term (current) drug therapy; Z86.73 Personal history of transient ischemic attack (TIA), and cerebral infarction without residual deficits; Z79.01 Long term (current) use of anticoagulants
CPT/HCPCS: 0241U; 36415; 71045; 80053; 81001; 83036; 83605; 83735; 84132; 85025; 85027; 86308; 87040; 87086; 93005; 93041; 93268; 94640; 94660; 94760; 96360; 96365; 96366; 96368; 97161; 99285; G0378; Q3014; J0696; J3475; J3480; A9270-GY

== ENCOUNTER 2025-03-22 18:03 | Emergency (ER) | payer MEDICARE, OTHER ==
[2025-03-22 18:06] VITALS: TEMP 98
--- NOTE | 2025-03-22 18:09 | ERPHSYRPT ---
- History of Present Illness Time Seen by Provider: 03/22/25 18:09 Source: patient, family Exam Limitations: clinical condition Physician History: This is a 74-year-old white female patient who arrives in private vehicle and is a patient of Dr. Rivera who had relatively sudden onset of confusion and could not recall names of family on her way back from [facility]. On arrival to the emergency department, patient recalls not remembering names as she normally does. Patient's current NIH score is 0 per my evaluation. Patient has a history of arrhythmia on Eliquis, gastroesophageal reflux disease, hypertension, COPD/asthma, 2 CVAs in the past without residual effect, hyperlipidemia, arthritis. I did review the patient's admission and discharge note dated 07/10/2024 when she was here in our hospital. Patient denies chest pain. Patient denies head injury. She has no shortness of breath. She denies fever. Timing/Duration: today Severity: mild Character of Deficits: none Deficits: no difficulties Baseline/Normal Cognition: alert oriented x 3 Current Cognition: alert oriented x 3 Baseline Gait: walks w/o assistance Associated Symptoms: confusion, other (Could not recall family members names briefly) Allergies/Adverse Reactions: ibuprofen Adverse Reaction (Verified 03/22/25 18:21) patient bleeds Home Medications: Escitalopram Oxalate [Lexapro] 20 mg PO DAILY 09/21/16 [History] Fenofibrate Nanocrystallized [Fenofibrate] 145 mg PO DAILY 09/21/16 [History] PANTOPRAZOLE 40 mg Tablet [Protonix 40MG Tablet] 40 mg PO DAILY PRN PRN 09/21/16 [History] Apixaban [Eliquis 2.5 mg Tablet] 2.5 mg PO BID 04/25/23 [History] Albuterol Sulfate [Albuterol Sulfate Hfa] 90 mcg IN Q4H PRN 07/10/24 [History] Fluticasone Propion/Salmeterol [Advair 100-50 Diskus] 1 puff IH BID 07/10/24 [History] Hydrocodone/Acetaminophen [Hydrocodone-Acetamin 5-325 mg] 1 tab PO TID 07/10/24 [History] Metoprolol Succinate 25 mg Xl* [Toprol-Xl 25MG Tablets] 25 mg PO BID 07/10/24 [History] Montelukast Sodium 10 mg [Singulair 10 MG] 10 mg PO DAILY 07/10/24 [History] Multivitamin [Multi-Vitamin Daily] 1 tab PO DAILY 07/10/24 [History] Tiotropium [place] [Spiriva Handihaler] 1 cap IH DAILY 07/10/24 [History] Hx Tetanus, Diphtheria Vaccination/Date Given: No Hx Influenza Vaccination/Date Given: Yes Hx Pneumococcal Vaccination/Date Given: Yes Travel Risk - International Travel Have you traveled outside of the country in past 3 weeks: No - Emerging Infectious Disease Are you exhibiting symptoms associated with any current EIDs: Yes Symptoms: Headaches/Body Aches/, Other (Please Comment) Comment: nausea - Review of Systems Constitutional: No Symptoms Eyes: No Symptoms Ears, Nose, & Throat: No Symptoms Respiratory: No Symptoms Cardiac: No Symptoms Abdominal/Gastrointestinal: No Symptoms Genitourinary Symptoms: No Symptoms Musculoskeletal: No Symptoms Skin: No Symptoms Neurological: No Symptoms Psychological: No Symptoms Endocrine: No Symptoms Hematologic/Lymphatic: No Symptoms Immunological/Allergic: No Symptoms All Other Systems: Reviewed and Negative - Past Medical History Pertinent Past Medical History: Yes Neurological History: Stroke ENT History: Cataracts Cardiac History: Arrhythmia, Hypertension Respiratory History: Asthma, COPD Endocrine Medical History: Other Musculoskeletal History: Osteoarthritis GI Medical History: Diverticulitis, GERD, Hernia, Polyps History: No Pertinent History Psycho-Social History: No Pertinent History Female Reproductive Disorders: No Pertinent History Other Medical History: 2 CVA WITH NO RESIDUAL SYMPTOMS. FATTY LIVER, A-FIB, "GLUE" IN THE BACK-BACK SURGERY - Past Surgical History Past Surgical History: Yes Neuro Surgical History: No Pertinent History Cardiac: No Pertinent History Respiratory: No Pertinent History Gastrointestinal: Bowel Surgery, Cholecystectomy, Hernia Repair Genitourinary: No Pertinent History Musculoskeletal: Other Female Surgical History: Hysterectomy, Tubal Ligation Other Surgical History: esophageal reduction, kyphoplasty - Social History Drug Use: none - Social Determinants of Health Will the patient participate in the screening: Declined to provide Do you worry about a steady place to live?: No In the past 12 months,have you had to go without utilities?: No Transportation Issues: No Has anyone in your support network made you feel unsafe?: No Have you or anyone in your house had to go w/o enough food: No - Nursing Vital Signs Nursing Vital Signs: Initial Vital Signs Temperature 98.0 F 03/22/25 18:05 Pulse Rate 76 03/22/25 18:05 Respiratory Rate 24 03/22/25 18:05 Blood Pressure 196/78 03/22/25 18:05 O2 Sat by Pulse Oximetry 99 03/22/25 18:05 Pain Scale Pain Intensity 0 - Cyndi Coma Scale Best Eye Response (Cyndi): (4) open spontaneously Best Verbal Response ([place]): (5) oriented Best Motor Response (Cyndi): (6) obeys commands Cyndi Total: 15 - Physical Exam General Appearance: no apparent distress, alert, anxiety Eye Exam: bilateral eye: normal inspection, PERRL, EOMI Ears, Nose, Throat Exam: normal ENT inspection, TMs normal, pharynx normal, moist mucous membranes Neck Exam: normal inspection, non-tender, supple, full range of motion Respiratory: normal breath sounds, lungs clear, airway intact, No chest tenderness, No respiratory distress Cardiovascular: regular rate/rhythm, normal heart sounds, normal peripheral pulses Gastrointestinal: soft, normal bowel sounds, No tenderness Pelvic Exam: not done Rectal Exam: not done Back Exam: normal inspection, normal range of motion, No CVA tenderness, No vertebral tenderness Extremity Exam: normal inspection, normal range of motion, pelvis stable Mental Status: alert, oriented x 3, 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 QTc is 456. No evidence of any acute ischemia) Ordered Tests: Active Orders 24 hr Category Date Time Status Manufacturing Software Engineer STAT Care 03/22/25 18:26 Active EKG-ER Only STAT Care 03/22/25 18:26 Active IV Insertion STAT Care 03/22/25 18:26 Active NPO (ED) STAT Care 03/22/25 18:26 Active POCT Glucose Check STAT Care 03/22/25 18:26 Active Pulse Oximetry (ED) STAT Care 03/22/25 18:26 Active HEAD WITHOUT CONTRAST [CT] Stat Exams 03/22/25 18:09 Taken CBC W DIFF Stat Lab 03/22/25 18:40 Completed CMP Stat Lab 03/22/25 18:40 Completed CULTURE,URINE Stat Lab 03/22/25 19:15 Received MAGNESIUM Stat Lab 03/22/25 18:40 Completed PT INR [PROTIME WITH INR] Stat Lab 03/22/25 18:40 Completed UA W/RFX UR CULTURE Stat Lab 03/22/25 19:15 Completed Medication Summary Generic Name Dose Route Start Last Admin Trade Name Freq PRN Reason Stop Dose Admin Ceftriaxone Sodium 1 gm in 100 mls @ 200 mls/hr 03/22/25 19:33 03/22/25 19:40 Rocephin 1 Gm / 100 Ml Nacl IV 03/22/25 20:02 200 mls/hr STAT ONE 200 mls/hr Administration Discontinued Medications Generic Name Dose Route Start Last Admin Trade Name Freq PRN Reason Stop Dose Admin Ceftriaxone Sodium Confirm 03/22/25 19:37 Rocephin 1 Gm / 100 Ml Nacl Administered 03/22/25 19:38 Dose 1 gm in 100 mls @ ud IV .STK-MED ONE Lab/Rad Data: Laboratory Result Diagrams 03/22/25 18:40 03/22/25 18:40 Laboratory Results 03/22/25 03/22/25 03/22/25 Range/Units 19:15 18:40 18:40 WBC (3.98-10.04) x10^3/uL RBC (3.93-5.22) x10^6/uL Hgb (11.2-15.7) g/dL Hct (34.1-44.9) % MCV (79.4-94.8) fL MCH (25.6-32.2) pg MCHC (32.2-35.5) g/dL RDW (11.7-14.4) % Plt Count (182-369) x10^3/uL MPV (9.4-12.3) fL Gran % (34.0-71.1) % Immature Gran % (Auto) (0.001-0.429) % Nucleat RBC Rel Count (0.00-0.2) % Eos # (Auto) (0.04-0.36) x10^3/uL Immature Gran # (Auto) (0.001-0.031) x10^3u/L Absolute Lymphs (auto) (1.18-3.74) x10^3/uL Absolute Monos (auto) (0.24-0.86) x10^3/uL Absolute Nucleated RBC (0.00-0.012) x10^3u/L Lymphocytes % (19.3-51.7) % Monocytes % (4.7-12.5) % Eosinophils % (0.7-5.8) % Basophils % (0.1-1.2) % Absolute Granulocytes (1.56-6.13) x10^3/uL Basophils # (0.01-0.08) x10^3/uL PT 11.3 (9.4-12.5) SECONDS INR 1.01 (0.8-3.0) Sodium (135-145) mmol/L Potassium (3.5-5.1) mmol/L Chloride (98-107) mmol/L Carbon Dioxide (22-30) mmol/L Anion Gap (5-15) MEQ/L BUN (7-17) mg/dL Creatinine (0.52-1.04) mg/dL Estimated GFR ML/MIN Glucose (74-106) mg/dL Calcium (8.4-10.2) mg/dL Magnesium (1.6-2.3) mg/dL Total Bilirubin (0.2-1.3) mg/dL AST (14-36) U/L ALT (0-35) U/L Alkaline Phosphatase (38-126) U/L Ammonia < 9 L (9-30) umol/L Serum Total Protein (6.3-8.2) g/dL Albumin (3.5-5.0) g/dL Urine Color Yellow (Yellow) Urine Appearance Cloudy A (Clear) Urine pH 5.5 (4.6-8.0) Ur Specific [place] 1.020 (1.005-1.030) Urine Protein Trace A (Negative) Urine Glucose (UA) Negative (Negative) mg/dL Urine Ketones Negative (Negative) Urine Blood Moderate A (Negative) Urine Nitrite Positive A (Negative) Urine Bilirubin Negative (Negative) Urine Urobilinogen 1.0 A (0.2) mg/dL Ur Leukocyte Esterase Large A (Negative) U Hyaline Cast (Auto) NONE SEEN (0-2) /LPF Urine Microscopic RBC 6-10 A (0-5) /HPF Urine Microscopic WBC >100 A (0-5) /HPF Ur Epithelial Cells Rare (None Seen) /HPF Urine Bacteria Many A (None Seen) /HPF Urine Culture Reflexed ORDERED SEPARATELY (NO) 03/22/25 03/22/25 Range/Units 18:40 18:40 WBC 8.2 (3.98-10.04) x10^3/uL RBC 4.19 (3.93-5.22) x10^6/uL Hgb 12.4 (11.2-15.7) g/dL Hct 38.6 (34.1-44.9) % MCV 92.1 (79.4-94.8) fL MCH 29.6 (25.6-32.2) pg MCHC 32.1 L (32.2-35.5) g/dL RDW 13.8 (11.7-14.4) % Plt Count 302 (182-369) x10^3/uL MPV 9.8 (9.4-12.3) fL Gran % 46.9 (34.0-71.1) % Immature Gran % (Auto) 0.4 (0.001-0.429) % Nucleat RBC Rel Count 0.0 (0.00-0.2) % Eos # (Auto) 0.47 H (0.04-0.36) x10^3/uL Immature Gran # (Auto) 0.03 (0.001-0.031) x10^3u/L Absolute Lymphs (auto) 2.75 (1.18-3.74) x10^3/uL Absolute Monos (auto) 1.06 H (0.24-0.86) x10^3/uL Absolute Nucleated RBC 0.00 (0.00-0.012) x10^3u/L Lymphocytes % 33.6 (19.3-51.7) % Monocytes % 12.9 H (4.7-12.5) % Eosinophils % 5.7 (0.7-5.8) % Basophils % 0.5 (0.1-1.2) % Absolute Granulocytes 3.84 (1.56-6.13) x10^3/uL Basophils # 0.04 (0.01-0.08) x10^3/uL PT (9.4-12.5) SECONDS INR (0.8-3.0) Sodium 139 (135-145) mmol/L Potassium 3.6 (3.5-5.1) mmol/L Chloride 105 (98-107) mmol/L Carbon Dioxide 27 (22-30) mmol/L Anion Gap 11.3 (5-15) MEQ/L BUN 22 H (7-17) mg/dL Creatinine 0.66 (0.52-1.04) mg/dL Estimated GFR 92.6 ML/MIN Glucose 101 (74-106) mg/dL Calcium 9.4 (8.4-10.2) mg/dL Magnesium 1.7 (1.6-2.3) mg/dL Total Bilirubin 0.10 L (0.2-1.3) mg/dL AST 26 (14-36) U/L ALT 13 (0-35) U/L Alkaline Phosphatase 45 (38-126) U/L Ammonia (9-30) umol/L Serum Total Protein 7.0 (6.3-8.2) g/dL Albumin 4.1 (3.5-5.0) g/dL Urine Color (Yellow) Urine Appearance (Clear) Urine pH (4.6-8.0) Ur Specific [place] (1.005-1.030) Urine Protein (Negative) Urine Glucose (UA) (Negative) mg/dL Urine Ketones (Negative) Urine Blood (Negative) Urine Nitrite (Negative) Urine Bilirubin (Negative) Urine Urobilinogen (0.2) mg/dL Ur Leukocyte Esterase (Negative) U Hyaline Cast (Auto) (0-2) /LPF Urine Microscopic RBC (0-5) /HPF Urine Microscopic WBC (0-5) /HPF Ur Epithelial Cells (None Seen) /HPF Urine Bacteria (None Seen) /HPF Urine Culture Reflexed (NO) - Progress Progress: improved, re-examined Progress Note: 03/22/25 18:43 My medical decision making and the assignment of high complexity of this patient's medical issue today is based on review of the patient's past medical history, reviewed the patient's medication list, reviewed patient drug allergy list, history present illness and physical findings on examination. The workup in this patient includes placement of intravenous line, twelve-lead EKG, troponin level, CBC, CMP, magnesium level, urinalysis, ammonia level, CT scan of the head without contrast and teleneurology consultation. Differential diagnosis includes but is not limited to TIA, dementia, intracranial bleed, other acute intracranial abnormality, dehydration, electrolyte abnormalities, urinary tract infection 03/22/25 19:[address] scan of the head without contrast was interpreted by the radiologist and I reviewed the impression. The impression states stable, nonacute senile head compared to similar study dated 05/10/2024. 03/22/25 19:32 I interpreted the patient's laboratory data results. Based on the laboratory data results, the patient has a significant urinary tract infection. 03/22/25 20:[address] Day, the teleneurologist who evaluated this patient. Patient's laboratory results and CT scan results had returned prior to him talking to me. However, the urinalysis result did just at the time he called me so he was unaware that the patient has a significant urinary tract infection. Based on the complete workup results, the Dr. Day does not feel the patient requires stroke workup as the significant urinary tract infection is the likely cause of her brief amnestic symptoms. He states she can go home. Counseled pt/family regarding: lab results, diagnosis, rad results Medical Desision Making - Independent Historian Additional History obtained from: Family - Diagnostic Testing Diagnostic test were ordered, analyzed, and reviewed by me: Yes Radiological Interpretation: Reviewed by me, Teleradiologist Report - Risk of complications Low Risk: Low risk of morbidity from additional dx testing or treatment The pt has a mod risk of morbidity or mortality based on: Need for prescription drug management - Departure Departure Disposition: Home Clinical Impression: UTI (urinary tract infection) Condition: Stable Critical Care Time: No Referrals: JOSE RIVERA [Primary Care Provider, [facility]] - Follow up/PCP as directed Additional Instructions: Drink plenty of fluids. Take your antibiotics and other medications as prescribed. Call your primary care provider on 03/25/2025, to make arrangements for follow-up appointment for further evaluation and management. Prescriptions: Cefdinir 300 mg PO BID #14 cap
[2025-03-22 18:43] LABS: BASOPHIL % 0.5 % (0.1-1.2); Basophil (Absolute #) 0.04 x10^3/uL (0.01-0.08); Eosinophil (Absolute #) 0.47 x10^3/uL (0.04-0.36); Hematocrit 38.6 % (34.1-44.9); Hemoglobin 12.4 g/dL (11.2-15.7); IMMATURE GRAN # 0.03 x10^3u/L (0.001-0.031); IMMATURE GRAN % 0.4 % (0.001-0.429); Lymphocyte (Absolute #) 2.75 x10^3/uL (1.18-3.74); Mean Corpuscular Hemoglobin 29.6 pg (25.6-32.2); Mean Corpuscular Hgb Concent. 32.1 g/dL (32.2-35.5); Monocyte (Absolute #) 1.06 x10^3/uL (0.24-0.86); NUCLEATED RBC # 0.00 x10^3u/L (0.00-0.012); NUCLEATED RBC % 0.0 % (0.00-0.2); Platelet Count 302 x10^3/uL (182-369); Red Blood Count 4.19 x10^6/uL (3.93-5.22); White Blood Count 8.2 x10^3/uL (3.98-10.04)
[2025-03-22 18:56] LABS: INR 1.01 (0.8-3.0); PROTIME 11.3 SECONDS (9.4-12.5)
[2025-03-22 19:03] LABS: Calcium 9.4 mg/dL (8.4-10.2); Carbon Dioxide 27.0 mmol/L (22-30); Creatinine 1 0.66 mg/dL (0.52-1.04); EST GLOMERULAR FILTRATION RATE 92.6 ML/MIN; Glucose 101.0 mg/dL (74-106); Potassium 3.6 mmol/L (3.5-5.1); SGOT/AST 26.0 U/L (14-36); SGPT/ALT 13.0 U/L (0-35); Total Protein 7.0 g/dL (6.3-8.2)
[2025-03-22 19:28] LABS: Glucose, Urine Negative (Negative); Protein,Urine Dip Trace (Negative); WBC >100 /HPF (0-5)
[2025-03-22] MEDS ORDERED: ROCEPHIN 1 GM / 100 ML NaCl 1 GM/100 ML IVPB IV ONE (19:37)
[2025-03-22] MEDS: ROCEPHIN 1 GM / 100 ML NaCl 1 GM/100 ML IVPB IV ONE (19:40)
[2025-03-22 20:03] VITALS: BP 151/72; PULSE 69; RESP 16
[2025-03-22 20:04] VITALS: O2SAT 99
--- NOTE | 2025-03-22 21:33 | XRAY ---
Indication: Confusion. Multiple contiguous axial images obtained through the head without contrast. Comparison: May 10, 2024 Again age-appropriate global atrophy and moderate periventricular degenerative microischemia bilaterally. No acute intracranial hemorrhage, abnormal extra-axial fluid collection, or mass effect. 4th ventricle is midline without hydrocephalus. Bony calvarium intact. Again moderate mucosal thickening both ethmoid and minimal mucosal thickening both maxillary sinuses without fluid leveling. Mastoid air cells are clear. Impression: 1. Continued nonacute senile brain. 2. Again incidental paranasal sinus disease.
== END 2025-03-22 20:15 | disposition home or self-care (01) ==
LOC: ED 18:03
DX: N39.0 Urinary tract infection, site not specified (principal); R41.0 Disorientation, unspecified; I10 Essential (primary) hypertension; Z79.01 Long term (current) use of anticoagulants; Z79.899 Other long term (current) drug therapy
CPT/HCPCS: 36415; 70450; 80053; 81001; 82140; 83735; 85025; 85610; 87077; 87086; 87186; 93005; 93041; 94760; 96365; 99285; Q3014

== ENCOUNTER 2025-05-09 13:32 | Day surgery (SDC) | payer MEDICARE, OTHER ==
[2025-05-09] MEDS ORDERED: methylPREDNISolone acetate IM ONE (13:33)
[2025-05-09] MEDS ORDERED: LIDOCAINE HCL 1% 50 MG/5 ML VL IJ ONE (13:33)
[2025-05-09] MEDS ORDERED: BUPIVACAINE 0.5% VIAL IJ ONE (13:33)
--- NOTE | 2025-05-09 20:05 | XRAY ---
Indication: Left knee injection. Intraoperative fluoroscopy provided for 8 seconds. Single digital spot image submitted for interpretation demonstrates needle tip projecting over left femur intercondylar notch. Small amount of contrast injected for needle tip placement. Correlate with intraoperative findings/report.
--- NOTE | 2025-05-10 09:01 | XRAY ---
8 seconds of fluoroscopy were used in surgery for a left intra-articular knee injection.
== END 2025-05-09 17:32 | disposition home or self-care (01) ==
LOC: SDC-PAIN 13:32
PROVIDERS: ATTEND Psychiatry & Neurology Pain Medicine
DX: M17.12 Unilateral primary osteoarthritis, left knee (principal)